=== PATIENT | male | born 2000 | race Caucasian/White ===

== ENCOUNTER → 2022-12-06 13:19 | Outpatient (BNVA) | payer SELFPAY | PROVIDERS: PCP Pediatrics Adolescent Medicine; Visit Provider Internal Medicine | DX: Z02.79 Encounter for issue of other medical certificate (principal) ==

== ENCOUNTER 2023-07-25 10:42 | Outpatient (AMB) | payer BC, SELFPAY ==
--- NOTE | 2023-07-25 11:05 | MHC.PC.OV ---
Vital Signs 07/25/23 11:13 Height 6 ft 4.57 in Weight 185 lb 6 oz BMI 22.2 BP 102/62 Blood Pressure Location Lt brachial Position Sitting Respiration 17 Pulse 94 Pulse Source Pulse Oximeter Pulse Oximetry (%) 98 Oxygen Delivery Method Room Air Intake Visit Reasons: New Patient/ Request PE Intake Note: Patient is a new patient here to establish care for PE. Transferring care from Dr. Ovidio Elkins/Pediatric and Adolescent Medicine. Medical records have been requested today. Needing [employer] PE form done today. Zipper Cutter Required: No Accompanied by: Self / Same As Patient Allergies No Known Allergies [No Known Allergies*] Allergy (Verified 07/25/23 11:35) Medication List - Last Reconciled 07/25/23 by Farooq Munugia PA-C methylphenidate HCl CD 30 mg PO QAM Tobacco use date assessed: 07/25/23 Dental Screening Dental Screen Date: 07/25/23 Did you have a dental visit in the last 12 months?: No Did you have a dental problem in the last 6 months where you did not have access to dental care?: Yes Was dental information given to patient?: Patient has dentist HPI New Patient/ Request PE HPI Details Patient is a 22-year-old male here today for an annual physical. Patient's previous PCP was at a pediatrics office. Patient has a past medical history significant for ADD disorder.. 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 He wishes to recent ask on a professional level and needs a clearance. Vaccine: Up-to-date with tetanus, declines COVID vaccines, up-to-date with flu vaccine. [facility] Social History (Updated 07/25/23 @ 11:40 by Farooq Munguia PA-C) Housing: House Alcohol intake: current Alcohol intake frequency: holidays/special occasions only Patient Tobacco Use Status: Never used Tobacco e-Cigarette/Vaping Use: Never Used service: No Current occupational status: employed Current occupation: [employer] Cognitive needs: No Hearing needs: No Vision needs: No Questionnaire PHQ-9 Over the last 2 weeks, how often have you been bothered by any of the following problems? 1. Little interest or pleasure in doing things: not at all 2. Feeling down, depressed, or hopeless: not at all 3. Trouble falling or staying asleep, or sleeping too much: not at all 4. Feeling tired or having little energy: not at all 5. Poor appetite or overeating: not at all 6. Feeling bad about yourself - or that you are a failure or have let yourself or your family down: not at all 7. Trouble concentrating on things, such as reading the newspaper or watching television: not at all 8. Moving or speaking so slowly that other people could have noticed. Or the opposite - being so fidgety or restless that you have been moving around a lot more than usual: not at all 9. Thoughts that you would be better off or of hurting yourself in some way: not at all Total score: 0 Depression Screening Interpretation: Negative Depression Screening Done: Yes 08703 - PHQ-9 Billing: Yes Source: Developed by Drs. Sourav Jenkins, Jenn Wood, Godfrey Baltazar and colleagues, with an educational zac from [employer]. Thrive Questionnaire Date Thrive assessed: 07/25/23 I am a: Patient What is your living situation today?: I have a steady place to live Within the past 12 months, did the food you bought not last and you didn't have the money to get more?: Never true Within the past 12 months, did you worry whether your food would run out before you got money to buy more?: Never true Do you have trouble paying for medicines?: No Do you have trouble getting transportation to medical appointments?: No Do you have trouble paying your heating and electricity bill?: No Do you have trouble taking care of your child, family member or friend?: No Do you have trouble with day-to-day activities such as bathing, preparing meals, shopping, managing finances, etc.?: No Are you currently unemployed and looking for a job?: No Are you interested in more education?: No Please select the resources that you would like help with: None Currently or been in a relationship where the following occur: no concerns reported THRIVE Score: 0 AUDIT C Alcohol Use Questionnaire (AUDIT-C) 1. How often do you have a drink containing alcohol?: Never 3. How often do you have six or more drinks on one occasion?: Never Total Score: 0 TAMMY-7 AMB Questionnaire TAMMY-7 Date TAMMY - 7 assessed: 07/25/23 Feeling nervous, anxious, or on edge: 0 = Not at all Not being able to stop or control worryin = Not at all Worrying too much about different things: 0 = Not at all Trouble relaxin = Not at all Being so restless that it is hard to sit still: 0 = Not at all Becoming easily annoyed or irritable: 0 = Not at all Feeling afraid as if something awful might happen: 0 = Not at all Total TAMMY-7 score (0-4 normal; 5-9 mild; 10-14 moderate; 15-21 severe): 0 Source: Developed by Drs. Sourav Jenkins, Jenn Wood, Godfrey Baltazar and colleagues, with an educational zac from [employer]. TAMMY-7 Assessment Billing TAMMY-7 Assessment Tool: TAMMY-7 Assessment 35057 Review of Systems Const Denies body aches, Denies chills, Denies excessive sweating, Denies fatigue, Denies fever(s) and Denies headache(s) Eyes Denies blurry vision ENT Denies dysphagia, Denies vertigo, Denies dizziness, Denies headache(s), Denies hearing loss and Denies tinnitus Card Denies chest pain, Denies chest pain with activity, Denies syncope, Denies irregular heart rhythm and Denies dyspnea Resp Denies chest congestion, Denies cough, Denies hemoptysis, Denies dyspnea and Denies wheezing GI Denies abdominal pain, Denies melena, Denies hematochezia, Denies coffee ground emesis, Denies dysphagia, Denies diarrhea, Denies nausea and Denies vomiting Denies difficulty urinating, Denies dysuria, Denies urinary frequency, Denies urinary hesitancy and Denies urinary urgency Musc Denies arthralgias, Denies limited range of motion, Denies muscle cramps and Denies muscle weakness Skin/Breast Denies rash and Denies skin ulcer Neuro Denies Abnormal speech present, Denies confusion, Denies vertigo, Denies dizziness, Denies syncope, Denies headache(s), Denies memory loss and Denies seizure-like activity Psych Denies anxiety, Denies confusion, Denies depression, Denies memory loss, Denies panic attacks and Denies paranoia Endo Denies excessive sweating, Denies fatigue, Denies flushing, Denies polydipsia and Denies polyuria Aller/Immun Denies wheezing Physical exam (Primary Care) Vital Signs: Last Vital Signs Pulse 94 07/25/23 11:13 Resp 17 07/25/23 11:13 BP 102/62 07/25/23 11:13 Pulse Ox 98 07/25/23 11:13 Oxygen Delivery Method Room Air 07/25/23 11:13 BMI result Body Mass Index 22.2 Tobacco/Smoking Status: Tobacco use Status Tobacco use date assessed 07/25/23 07/25/23 11:25 Patient Tobacco Use Status Never used Tobacco 07/25/23 11:40 e-Cigarette/Vaping Use Never Used 07/25/23 11:40 PHQ-9: PHQ-9 Score PHQ-9: Total score 0 07/25/23 11:37 Depression Screening Interpretation: Negative Thrive Assessment: Date of Thrive Assessment Date Thrive assessed 07/25/23 07/25/23 11:25 Currently or been in a relationship where the following occur: no concerns reported Const General: cooperative, comfortable, no acute distress, alert and awake; No confusion Orientation/consciousness: oriented to person, oriented to place, patient oriented x3 and No confusion HENMT Head: Yes normocephalic Ears: external ears normal and TM's normal bilaterally Face and sinus: No sinus tenderness Mouth: Normal oral and palatal mucosa present and tongue normal Teeth and gingiva: dentition normal and gingiva normal Throat: Yes posterior oropharynx normal, Yes tonsils normal and Yes uvula midline Eyes Conjunctivae: conjunctivae normal Sclerae: sclerae normal Pupils: Equal, round and reactive pupils present EOM: EOMs intact bilaterally Direct Ophthalmoscopy: No no photophobia Neck Neck: Yes no lymphadenopathy, No tender and Yes no JVD Thyroid: Thyroid normal Carotids: no bruits Chest Chest palpation & inspection: no tenderness Resp Effort & Inspection: normal respiratory effort, no audible wheezes, not labored and no stridor Auscultation: no crackles, no rales, no rhonchi and no wheezes Cardio Jugular venous distension: no JVD Rate: regular rate, not bradycardic and not tachycardic Rhythm: regular rhythm Bruits: no carotid bruits Peripheral pulses: Peripheral pulses 2+ throughout GI Inspection: Yes normal to inspection, No abdominal wall ecchymosis and No visible herniation Palpation (GI): Soft to palpation, nontender, no guarding, not rigid and No hepatosplenomegaly present Auscultation: normoactive bowel sounds General: Yes no CVA tenderness Back/Spine/Pelvis Back: no CVA tenderness and No back tenderness Cervical Spine: cervical ROM normal Thoracic/Lumbar Spine: thoracic and lumbar spine normal to inspection, straight leg raise negative bilaterally, No thoraco-lumbar ROM limited and No lumbar spinal tenderness Skin Lesions: no lesions Rashes: no rashes Wounds: no wounds Neuro General: oriented to person, oriented to place, patient oriented x3, CN's II-XI intact bilaterally and No confusion Cranial nerves: Yes Equal, round and reactive pupils present and Yes Normal accommodation reflex present Cognition (Neuro): normal cognition Speech: No Abnormal speech present Gait exam (Neuro): Normal gait present Motor exam (neuro): 5/5 motor strength present throughout Extrem Right upper extremity: full ROM; no cyanosis Left upper extremity: full ROM; no cyanosis Right lower extremity: no edema Left lower extremity: no edema Psych Appearance: grossly normal Mental Status: mental status grossly normal Affect: normal affect Attitude: cooperative Thought process: Normal thought process present Assessment and Plan Assessment & Plan (1) Annual physical exam: Code(s): Z00.00 - Encounter for general adult medical examination without abnormal findings (2) ADD (attention deficit disorder): Code(s): F98.8 - Other specified behavioral and emotional disorders with onset usually occurring in childhood and adolescence Qualifiers: Attention deficit-hyperactivity disorder type: predominantly inattentive Hyperactivity presence: present Qualified Code(s): F90.0 - Attention-deficit hyperactivity disorder, predominantly inattentive type Plan: Patient has been diagnosed with ADD since childhood. Continues on low-dose methylphenidate to which his security system installer was managing. Will now need his adult PCP to manage his ADD disorder. (3) Screening for diabetes mellitus (DM): Code(s): Z13.1 - Encounter for screening for diabetes mellitus Orders: Orders Comprehensive [place]. Panel Fast Today Z13.1 - Encounter for screening for diabetes mellitus Coding Level of Care Code New Pt Prev Care 18-39yr([id number] Diagnoses Annual physical exam Z00.00 Attention deficit hyperactivity disorder (ADHD), predominantly inattentive type F90.0 Attention deficit-hyperactivity disorder type: predominantly inattentive Hyperactivity presence: present Screening for diabetes mellitus (DM) Z13.1 CPT Codes Vision Screening - Vision Screenin - Vision Screening ([id number]) Additional Codes TAMMY-7 Assessment Billing - TAMMY-7 Assessment Tool: TAMMY-7 Assessment 85105 ([id number]) Vision Screening Right Eye: 20/20 Left Eye: 20/20 Bilateral: 20/20 Overall Vision Screening Results: Pass 73712 - Vision Screening
[2023-07-25 11:13] VITALS: BP 102/62; PULSE 94; RESP 17; O2SAT 98; BMI 22.2
== END 2023-07-25 11:58 | disposition home or self-care (01) ==
PROVIDERS: PCP Pediatrics Adolescent Medicine; Visit Provider Physician Assistant
DX: Z00.00 Encounter for general adult medical examination without abnormal findings (principal); F90.0 Attention-deficit hyperactivity disorder, predominantly inattentive type; Z13.1 Encounter for screening for diabetes mellitus; Z01.00 Encounter for examination of eyes and vision without abnormal findings
CPT/HCPCS: 99173; 99385

== ENCOUNTER 2023-10-14 09:47 | Outpatient (REF) | payer BC, SELFPAY ==
[2023-10-14 11:49] LABS: Alanine Aminotransferase 11 U/L (0-40); Albumin Level 4.5 g/dL (3.5-5.0); Alkaline Phosphatase 78 U/L (39-117); Anion Gap 15 (12-20); Aspartate Amino Transferase 17 U/L (5-37); Blood Urea Nitrogen 19 mg/dL (9-16); Calcium 9.1 mg/dL (8.4-10.2); Carbon Dioxide 28 mmol/L (22-29); Chloride 106 mmol/L (96-108); Estimated Glomerular Filt Rate > 60; Glucose Fasting 89 mg/dL (60-99); Potassium 3.8 mmol/L (3.3-5.1); Sodium 145 mmol/L (135-145); Total Protein 7.1 g/dL (6.5-8.0)
== END 2023-10-14 09:48 | disposition home or self-care (01) ==
LOC: HO.HMGCLDS 09:47
PROVIDERS: PCP Physician Assistant; Visit Provider Physician Assistant
DX: Z13.1 Encounter for screening for diabetes mellitus (principal)
CPT/HCPCS: 36415; 80053

== ENCOUNTER 2023-10-31 14:29 | Outpatient (AMB) | payer BC, SELFPAY ==
--- NOTE | 2023-10-31 14:31 | A.OFFPC_ITS ---
Vital Signs 10/31/23 14:35 Height 6 ft 4.47 in Weight 180 lb 8 oz BMI 21.7 BP 120/60 Blood Pressure Location Lt brachial Position Sitting Pulse 108 H Pulse Source Pulse Oximeter Pulse Oximetry (%) 98 Oxygen Delivery Method Room Air Intake Visit Reasons: f/u ADD Resource Program Teacher Required: No Accompanied by: Self / Same As Patient Allergies No Known Allergies [No Known Allergies*] Allergy (Verified 10/31/23 14:36) Medication List - Last Reconciled 10/31/23 by Farooq Munguia PA-C methylphenidate HCl CD 30 mg PO DAILY 30 days Tobacco use date assessed: 07/25/23 Dental Screening Dental Screen Date: 07/25/23 HPI f/u ADD HPI Details Patient is a 23-year-old male here today for a follow-up visit. . Patient has a past medical history significant for ADD disorder.. 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 He has been doing well on current dose of methylphenidate though feels his dose has a bit low for him, he would like to try higher dose to help him with his attention focus a bit more. 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 Sourav Jenkins, Jenn Wood, Godfrey Baltazar and colleagues, with an educational zac from [employer]. Review of Systems Const Denies headache(s) Eyes Denies loss of vision ENT Denies vertigo, Denies dizziness, Denies headache(s) and Denies sore throat Card Denies chest pain, Denies leg edema and Denies lightheadedness Resp Denies cough, Denies hemoptysis and Denies wheezing GI Denies abdominal pain, Denies melena, Denies constipation, Denies diarrhea and Denies vomiting Denies dysuria, Denies urinary frequency and Denies urinary urgency Musc Denies arthralgias, Denies joint swelling, Denies numbness and Denies tingling Neuro Denies Abnormal speech present, Denies behavioral changes, Denies vertigo, Denies dizziness, Denies headache(s), Denies loss of vision, Denies memory loss, Denies numbness and Denies tingling Psych Denies anxiety, Denies behavioral changes, Denies depression, Denies memory loss and Denies panic attacks Carroll/Lymph Denies easy bleeding and Denies easy bruising Aller/Immun Denies wheezing Physical exam (Primary Care) Vital Signs: Last Vital Signs Pulse 108 H 10/31/23 14:35 BP 120/60 10/31/23 14:35 Pulse Ox 98 10/31/23 14:35 Oxygen Delivery Method Room Air 10/31/23 14:35 BMI result Body Mass Index 21.7 Tobacco/Smoking Status: Tobacco use Status Tobacco use date assessed 07/25/23 10/31/23 14:32 Patient Tobacco Use Status Never used Tobacco 10/31/23 14:32 e-Cigarette/Vaping Use Never Used 10/31/23 14:32 Thrive Assessment: Date of Thrive Assessment Date Thrive assessed 07/25/23 10/31/23 14:32 Const General: healthy appearing, no acute distress, alert and awake Nutritional Appearance: well nourished Orientation/consciousness: oriented to person, oriented to place and oriented to time HENMT Ears: TM's normal bilaterally General nose exam: Normal nasal mucous membranes and turbinates present Eyes Conjunctivae: conjunctivae normal Sclerae: sclerae normal Pupils: Equal, round and reactive pupils present Neck Neck: Yes no lymphadenopathy and Yes no JVD Thyroid: Thyroid normal Carotids: no bruits Resp Effort & Inspection: normal respiratory effort and not tachypneic Auscultation: no crackles, no rales, no rhonchi and no wheezes Cardio Rate: regular rate Rhythm: regular rhythm Heart sounds: no murmurs and normal S1 and S2 GI Palpation (GI): Soft to palpation, nontender, no hepatomegaly and no splenomegaly Auscultation: normal bowel sounds Skin General skin exam: no rashes or lesions noted and dry skin Neuro General: oriented to person, oriented to place and oriented to time Cranial nerves: Yes Equal, round and reactive pupils present Speech: No Abnormal speech present Gait exam (Neuro): Normal gait present Motor exam (neuro): no tremor noted Extrem Right upper extremity: full ROM Left upper extremity: full ROM Right lower extremity: full ROM; no edema Left lower extremity: full ROM; no edema Psych Mental Status: mental status grossly normal Speech and movement: Normal speech and movement present Affect: normal affect Attitude: cooperative Thought process: Normal thought process present Assessment and Plan Assessment & Plan (1) ADD (attention deficit disorder): Code(s): F98.8 - Other specified behavioral and emotional disorders with onset usually occurring in childhood and adolescence Qualifiers: Hyperactivity presence: present Attention deficit-hyperactivity disorder type: predominantly inattentive Qualified Code(s): F90.0 - Attention- deficit hyperactivity disorder, predominantly inattentive type Plan: Patient has been diagnosed with ADD since childhood. Continues on low-dose methylphenidate to which his rabble furnace tender was managing. He feels his current dose Concerta is fairly effective though would like to try higher dose to see if helps him focus a bit better. Will increase his dose to 54 mg daily. Will follow-up in 3 months for ADD follow-up Medications: New methylphenidate HCl ER Partial Fill upon patient request. 54 mg PO DAILY 30 days 30 tabs 0RF F90.0 - Attention-deficit hyperactivity disorder, predominantly inattentive type Discontinued methylphenidate HCl CD Partial Fill upon patient request. Discontinued Reason: Doctor's Order 30 mg PO DAILY 30 days 30 caps 0RF F90.0 - Attention-deficit hyperactivity disorder, predominantly inattentive type Coding Level of Care Code Est Pt Level 3 (62808) Diagnoses Attention deficit hyperactivity disorder (ADHD), predominantly inattentive type F90.0 Hyperactivity presence: present Attention deficit-hyperactivity disorder type: predominantly inattentive
[2023-10-31 14:35] VITALS: BP 120/60; PULSE 108; O2SAT 98; BMI 21.7
== END 2023-10-31 14:45 | disposition home or self-care (01) ==
LOC: HO.HMGH 14:29
PROVIDERS: PCP Physician Assistant; Visit Provider Physician Assistant
DX: F90.0 Attention-deficit hyperactivity disorder, predominantly inattentive type (principal)
CPT/HCPCS: 99213

== ENCOUNTER 2024-01-31 08:11 | Outpatient (AMB) | payer BC, SELFPAY ==
[2024-01-31 08:26] VITALS: BP 110/68; PULSE 72; O2SAT 98; BMI 21.2
--- NOTE | 2024-01-31 08:26 | MHC.PC.OV ---
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 Required: No Accompanied by: Self / Same As Patient Allergies No Known Allergies [No Known Allergies*] Allergy (Verified 01/31/24 08:40) Medication List - Last Reconciled 01/31/24 by Farooq Munguia PA-C methylphenidate HCl ER 54 mg PO DAILY 30 days Tobacco use date assessed: 01/31/24 Dental Screening Dental Screen Date: 01/31/24 Did you have a dental visit in the last 12 months?: Yes Did you have a dental problem in the last 6 months where you did not have access to dental care?: No Was dental information given to patient?: Patient has dentist HPI 3mth f/u HPI Details Patient is a 23-year-old male here today for a follow-up visit. . Patient has a past medical history significant for ADD disorder.. 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 He has been doing well on current dose of methylphenidate though feels the 54 mg dose has been working well for him. 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 1. Little interest or pleasure in doing things: not at all 2. Feeling down, depressed, or hopeless: not at all 3. Trouble falling or staying asleep, or sleeping too much: not at all 4. Feeling tired or having little energy: not at all 5. Poor appetite or overeating: not at all 6. Feeling bad about yourself - or that you are a failure or have let yourself or your family down: not at all 7. Trouble concentrating on things, such as reading the newspaper or watching television: not at all 8. Moving or speaking so slowly that other people could have noticed. Or the opposite - being so fidgety or restless that you have been moving around a lot more than usual: not at all 9. Thoughts that you would be better off or of hurting yourself in some way: not at all Total score: 0 Depression Screening Interpretation: Negative Depression Screening Done: Yes 12768 - PHQ-9 Billing: Yes Source: Developed by Drs. Sourav Jenkins, Jenn Wood, Godfrey Baltazar and colleagues, with an educational zac from [employer]. Thrive Questionnaire Date Thrive assessed: 01/31/24 I am a: Patient What is your living situation today?: I have a steady place to live Within the past 12 months, did the food you bought not last and you didn't have the money to get more?: Never true Within the past 12 months, did you worry whether your food would run out before you got money to buy more?: Never true Do you have trouble paying for medicines?: No Do you have trouble getting transportation to medical appointments?: No Do you have trouble paying your heating and electricity bill?: No Do you have trouble taking care of your child, family member or friend?: No Do you have trouble with day-to-day activities such as bathing, preparing meals, shopping, managing finances, etc.?: No Are you currently unemployed and looking for a job?: No Are you interested in more education?: No Please select the resources that you would like help with: None Currently or been in a relationship where the following occur: No concerns reported THRIVE Score: 0 AUDIT C Alcohol Use Questionnaire (AUDIT-C) 1. How often do you have a drink containing alcohol?: Never 3. How often do you have six or more drinks on one occasion?: Never Total Score: 0 TAMMY-7 AMB Questionnaire TAMMY-7 Date TAMMY - 7 assessed: 01/31/24 Feeling nervous, anxious, or on edge: 0 = Not at all Not being able to stop or control worryin = Not at all Worrying too much about different things: 0 = Not at all Trouble relaxin = Not at all Being so restless that it is hard to sit still: 0 = Not at all Becoming easily annoyed or irritable: 0 = Not at all Feeling afraid as if something awful might happen: 0 = Not at all Total TAMMY-7 score (0-4 normal; 5-9 mild; 10-14 moderate; 15-21 severe): 0 Source: Developed by Drs. Sourav Jenkins, Jenn Wood, Godfrey Baltazar and colleagues, with an educational zac from [employer]. TAMMY-7 Assessment Billing TAMMY-7 Assessment Tool: TAMMY-7 Assessment 57088 Review of Systems Const Denies headache(s) Eyes Denies loss of vision ENT Denies vertigo, Denies dizziness, Denies headache(s) and Denies sore throat Card Denies chest pain, Denies leg edema and Denies lightheadedness Resp Denies cough, Denies hemoptysis and Denies wheezing GI Denies abdominal pain, Denies melena, Denies constipation, Denies diarrhea and Denies vomiting Denies dysuria, Denies urinary frequency and Denies urinary urgency Musc Denies arthralgias, Denies joint swelling, Denies numbness and Denies tingling Neuro Denies Abnormal speech present, Denies behavioral changes, Denies vertigo, Denies dizziness, Denies headache(s), Denies loss of vision, Denies memory loss, Denies numbness and Denies tingling Psych Denies anxiety, Denies behavioral changes, Denies depression, Denies memory loss and Denies panic attacks Carroll/Lymph Denies easy bleeding and Denies easy bruising Aller/Immun Denies wheezing Physical exam (Primary Care) Vital Signs: Last Vital Signs Pulse 72 01/31/24 08:26 BP 110/68 01/31/24 08:26 Pulse Ox 98 01/31/24 08:26 Oxygen Delivery Method Room Air 01/31/24 08:26 BMI result Body Mass Index 21.2 Tobacco/Smoking Status: Tobacco use Status Tobacco use date assessed 01/31/24 01/31/24 08:31 Patient Tobacco Use Status Never used Tobacco 01/31/24 08:31 e-Cigarette/Vaping Use Never Used 01/31/24 08:31 PHQ-9: PHQ-9 Score PHQ-9: Total score 0 10/16/24 08:33 Depression Screening Interpretation: Negative Thrive Assessment: Date of Thrive Assessment Date Thrive assessed 01/31/24 01/31/24 08:31 Currently or been in a relationship where the following occur: No concerns reported Const General: healthy appearing, no acute distress, alert and awake Nutritional Appearance: well nourished Orientation/consciousness: oriented to person, oriented to place and oriented to time HENMT Ears: TM's normal bilaterally General nose exam: Normal nasal mucous membranes and turbinates present Eyes Conjunctivae: conjunctivae normal Sclerae: sclerae normal Pupils: Equal, round and reactive pupils present Neck Neck: Yes no lymphadenopathy and Yes no JVD Thyroid: Thyroid normal Carotids: no bruits Resp Effort & Inspection: normal respiratory effort and not tachypneic Auscultation: no crackles, no rales, no rhonchi and no wheezes Cardio Rate: regular rate Rhythm: regular rhythm Heart sounds: no murmurs and normal S1 and S2 GI Palpation (GI): Soft to palpation, nontender, no hepatomegaly and no splenomegaly Auscultation: normal bowel sounds Skin General skin exam: no rashes or lesions noted and dry skin Neuro General: oriented to person, oriented to place and oriented to time Cranial nerves: Yes Equal, round and reactive pupils present Speech: No Abnormal speech present Gait exam (Neuro): Normal gait present Motor exam (neuro): no tremor noted Extrem Right upper extremity: full ROM Left upper extremity: full ROM Right lower extremity: full ROM; no edema Left lower extremity: full ROM; no edema Psych Mental Status: mental status grossly normal Speech and movement: Normal speech and movement present Affect: normal affect Attitude: cooperative Thought process: Normal thought process present Office Procedures Flu Questionnaire Does the patient have a severe egg allergy?: No Immunizations Fluarix Triv [id number] (PF) 45 mcg (15 mcg x 3)/0.5 mL IM syringe Performing Provider: Farooq Munguia PA-C [facility] [place] [facility] Documented (not given) by: DARIUS Blackman on 01/31/24 08:33 Reason Not Given: Patient Refused Coding Level of Care Code Est Pt Level 3 (87705) Diagnoses Attention deficit hyperactivity disorder (ADHD), predominantly inattentive type F90.0 Hyperactivity presence: present Attention deficit-hyperactivity disorder type: predominantly inattentive Additional Codes TAMMY-7 Assessment Billing - TAMMY-7 Assessment Tool: TAMMY-7 Assessment 58081 ([id number]) Assessment & Plan Assessment & Plan (1) ADD (attention deficit disorder): Code(s): F98.8 - Other specified behavioral and emotional disorders with onset usually occurring in childhood and adolescence Category: Medical Qualifiers: Hyperactivity presence: present Attention deficit-hyperactivity disorder type: predominantly inattentive Qualified Code(s): F90.0 - Attention-deficit hyperactivity disorder, predominantly inattentive type Plan: As per HPI patient continues on Concerta 54 mg with good effect on his attention focus. 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 He denies any side effects from the stimulant medication. Orders: Orders Influenza [id number] Immunization Today Z23 - Encounter for immunization Medications: Refilled methylphenidate HCl ER Partial Fill upon patient request. 54 mg PO DAILY 30 days 30 tabs 0RF F90.0 - Attention-deficit hyperactivity disorder, predominantly inattentive type
== END 2024-01-31 08:48 | disposition home or self-care (01) ==
PROVIDERS: PCP Physician Assistant; Visit Provider Physician Assistant
DX: F90.0 Attention-deficit hyperactivity disorder, predominantly inattentive type (principal); Z23 Encounter for immunization

== ENCOUNTER → 2024-01-31 08:11 | Outpatient (BNVA) | payer BC, SELFPAY | PROVIDERS: PCP Physician Assistant; Visit Provider Physician Assistant | DX: F90.0 Attention-deficit hyperactivity disorder, predominantly inattentive type (principal); Z79.899 Other long term (current) drug therapy; Z28.21 Immunization not carried out because of patient refusal | CPT/HCPCS: 90471; 96127 ==

== ENCOUNTER 2024-05-08 08:07 | Outpatient (AMB) | payer BC, SELFPAY ==
--- NOTE | 2024-05-08 08:11 | A.OFFPC_ITS ---
Vital Signs 05/08/24 08:16 Height 6 ft 4.57 in Weight 181 lb 4 oz BMI 21.7 BP 110/70 Blood Pressure Location Lt brachial Position Sitting Pulse 80 Pulse Source Pulse Oximeter Temp 97.1 F Temp Source Skin Pulse Oximetry (%) 98 Oxygen Delivery Method Room Air Intake Visit Reasons: f/u ADHD Intake Note: Patient is here to follow up on ADHD. Pt decline flu shot today. Instrumental Music Teacher Required: No Underwriting Technician: Not Required per policy Accompanied by: Self / Same As Patient Allergies No Known Allergies [No Known Allergies*] Allergy (Verified 05/08/24 08:22) Medication List - Last Reconciled 05/08/24 by Farooq Munguia PA-C methylphenidate HCl ER 54 mg PO DAILY 30 days Tobacco use date assessed: 05/08/24 Dental Screening Dental Screen Date: 05/08/24 Did you have a dental visit in the last 12 months?: Yes Did you have a dental problem in the last 6 months where you did not have access to dental care?: No Was dental information given to patient?: Patient has dentist HPI f/u ADHD HPI Details Patient is a 23-year-old male here today for a follow-up visit. . Patient has a past medical history significant for ADD disorder.. 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 He has been doing well on current dose of methylphenidate though feels the 54 mg dose has been working well for him. Does inquire about a higher dose of methylphenidate. 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 1. Little interest or pleasure in doing things: not at all 2. Feeling down, depressed, or hopeless: not at all 3. Trouble falling or staying asleep, or sleeping too much: not at all 4. Feeling tired or having little energy: not at all 5. Poor appetite or overeating: not at all 6. Feeling bad about yourself - or that you are a failure or have let yourself or your family down: not at all 7. Trouble concentrating on things, such as reading the newspaper or watching television: not at all 8. Moving or speaking so slowly that other people could have noticed. Or the opposite - being so fidgety or restless that you have been moving around a lot more than usual: not at all 9. Thoughts that you would be better off or of hurting yourself in some way: not at all Total score: 0 Depression Screening Interpretation: Negative Depression Screening Done: Yes Source: Developed by Drs. Sourav Jenkins, Jenn Wood, Godfrey Baltazar and colleagues, with an educational zac from [employer]. Thrive Questionnaire Date Thrive assessed: 05/08/24 I am a: Patient What is your living situation today?: I have a steady place to live Within the past 12 months, did the food you bought not last and you didn't have the money to get more?: Never true Within the past 12 months, did you worry whether your food would run out before you got money to buy more?: Never true Do you have trouble paying for medicines?: No Do you have trouble getting transportation to medical appointments?: No Do you have trouble paying your heating and electricity bill?: No Do you have trouble taking care of your child, family member or friend?: No Do you have trouble with day-to-day activities such as bathing, preparing meals, shopping, managing finances, etc.?: No Are you currently unemployed and looking for a job?: No Are you interested in more education?: No Please select the resources that you would like help with: None Currently or been in a relationship where the following occur: No concerns reported THRIVE Score: 0 AUDIT C Alcohol Use Questionnaire (AUDIT-C) 1. How often do you have a drink containing alcohol?: Monthly or less 2. How many drinks containing alcohol do you have on a typical day when you are drinking?: 1 or 2 3. How often do you have six or more drinks on one occasion?: Less than monthly Total Score: 2 TAMMY-7 AMB Questionnaire TAMMY-7 Date TAMMY - 7 assessed: 05/08/24 Feeling nervous, anxious, or on edge: 0 = Not at all Not being able to stop or control worryin = Not at all Worrying too much about different things: 0 = Not at all Trouble relaxin = Not at all Being so restless that it is hard to sit still: 0 = Not at all Becoming easily annoyed or irritable: 0 = Not at all Feeling afraid as if something awful might happen: 0 = Not at all Total TAMMY-7 score (0-4 normal; 5-9 mild; 10-14 moderate; 15-21 severe): 0 Source: Developed by Drs. Sourav Jenkins, Jenn Wood, Godfrey Baltazar and colleagues, with an educational zac from [employer]. Review of Systems Const Denies headache(s) Eyes Denies loss of vision ENT Denies vertigo, Denies dizziness, Denies headache(s) and Denies sore throat Card Denies chest pain, Denies leg edema and Denies lightheadedness Resp Denies cough, Denies hemoptysis and Denies wheezing GI Denies abdominal pain, Denies melena, Denies constipation, Denies diarrhea and Denies vomiting Denies dysuria, Denies urinary frequency and Denies urinary urgency Musc Denies arthralgias, Denies joint swelling, Denies numbness and Denies tingling Neuro Denies Abnormal speech present, Denies behavioral changes, Denies vertigo, Denies dizziness, Denies headache(s), Denies loss of vision, Denies memory loss, Denies numbness and Denies tingling Psych Denies anxiety, Denies behavioral changes, Denies depression, Denies memory loss and Denies panic attacks Carroll/Lymph Denies easy bleeding and Denies easy bruising Aller/Immun Denies wheezing Physical exam (Primary Care) Vital Signs: Last Vital Signs Temp 97.1 F 05/08/24 08:16 Pulse 80 05/08/24 08:16 BP 110/70 05/08/24 08:16 Pulse Ox 98 05/08/24 08:16 Oxygen Delivery Method Room Air 05/08/24 08:16 BMI result Body Mass Index 21.7 Tobacco/Smoking Status: Tobacco use Status Tobacco use date assessed 05/08/24 05/08/24 08:15 Patient Tobacco Use Status Never used Tobacco 05/08/24 08:15 e-Cigarette/Vaping Use Never Used 05/08/24 08:15 PHQ-9: PHQ-9 Score PHQ-9: Total score 0 05/08/24 08:21 Depression Screening Interpretation: Negative Thrive Assessment: Date of Thrive Assessment Date Thrive assessed 05/08/24 05/08/24 08:15 Currently or been in a relationship where the following occur: No concerns reported Const General: healthy appearing, no acute distress, alert and awake Nutritional Appearance: well nourished Orientation/consciousness: oriented to person, oriented to place and oriented to time HENMT Ears: TM's normal bilaterally General nose exam: Normal nasal mucous membranes and turbinates present Eyes Conjunctivae: conjunctivae normal Sclerae: sclerae normal Pupils: Equal, round and reactive pupils present Neck Neck: Yes no lymphadenopathy and Yes no JVD Thyroid: Thyroid normal Carotids: no bruits Resp Effort & Inspection: normal respiratory effort and not tachypneic Auscultation: no crackles, no rales, no rhonchi and no wheezes Cardio Rate: regular rate Rhythm: regular rhythm Heart sounds: no murmurs and normal S1 and S2 GI Palpation (GI): Soft to palpation, nontender, no hepatomegaly and no splenomegaly Auscultation: normal bowel sounds Skin General skin exam: no rashes or lesions noted and dry skin Neuro General: oriented to person, oriented to place and oriented to time Cranial nerves: Yes Equal, round and reactive pupils present Speech: No Abnormal speech present Gait exam (Neuro): Normal gait present Motor exam (neuro): no tremor noted Extrem Right upper extremity: full ROM Left upper extremity: full ROM Right lower extremity: full ROM; no edema Left lower extremity: full ROM; no edema Psych Mental Status: mental status grossly normal Speech and movement: Normal speech and movement present Affect: normal affect Attitude: cooperative Thought process: Normal thought process present Immunizations Boostrix Tdap 2.5 Lf unit-8 mcg-5 Lf/0.5 mL intramuscular syringe Performing Provider: Farooq Munguia PA-C Performing [facility]: [facility] Administered by: DARIUS Blackman on 05/08/24 08:38 Dose Route Admin Location Dispensed Lot Number Expiration Date [facility] [employer] Dean 0.5 mL IM Right Deltoid 0.5 mL [id number] 01/03/27 [id number] Omnireliant VIS Given Date VIS Provided VIS Publication Date 05/08/24 Single Vaccine 20 Eligibility Eligibility Date Funding Source Not [facility] Eligible 05/08/24 Private Coding Level of Care Code Est Pt Level 3 (31115) Diagnoses Attention deficit hyperactivity disorder (ADHD), predominantly inattentive type F90.0 Hyperactivity presence: present Attention deficit-hyperactivity disorder type: predominantly inattentive Assessment & Plan Assessment & Plan (1) ADD (attention deficit disorder): Code(s): F98.8 - Other specified behavioral and emotional disorders with onset usually occurring in childhood and adolescence Category: Medical Qualifiers: Hyperactivity presence: present Attention deficit-hyperactivity disorder type: predominantly inattentive Qualified Code(s): F90.0 - Attention-deficit hyperactivity disorder, predominantly inattentive type Plan: Patient doing quite well on current dose of methylphenidate. He reports he is able to stay focused and attentive on his job related tasks. He denies any side effects from stimulant ADHD medication. Will continue current dose at this time. Orders: Orders Comprehensive [place]. Panel Fast Today Z13.1 - Encounter for screening for diabetes mellitus Complete Blood Count no Diff Today Z13.1 - Encounter for screening for diabetes mellitus TDaP Immunization Today F90.0 - Attention-deficit hyperactivity disorder, predominantly inattentive type, Z23 - Encounter for immunization Medications: New Boostrix Tdap (diphth,pertus(acell),tetanus) 0.5 mL IM ONCE 0.5 mL 0RF NS F90.0 - Attention-deficit hyperactivity disorder, predominantly inattentive type, Z23 - Encounter for immunization Refilled methylphenidate HCl ER Partial Fill upon patient request. 54 mg PO DAILY 30 days 30 tabs 0RF F90.0 - Attention-deficit hyperactivity disorder, predominantly inattentive type
--- OUTSIDE RECORDS SUMMARY | 2024-05-08 08:11 | XMS_ITS | Clinical Summary ---
Author Organization [facility] Address [address] [place] [address] Phone Care Team Providers Care Postulant Name Role Phone Unavailable Primary Care Provider Unavailabl e Allergies Active Allergy Reactions Criticality Noted Date Comments Lisdexamfetamine Dimesylate Vyvanse Medications methylphenidate CD 30 MG CR capsuleIndications :Attention deficit disorder with hyperactivity Take 1 capsule (30 mg total) by mouth once daily. 30 capsule 4 Active Active Problems Problem Noted Date Diagnosed Date Counseling for transition fr pediatric to adult care provider 07/20/2022 Attention deficit disorder with hyperactivity Overview (02/01/2018): attention-deficit hyperactivity disorder (ADHD), predominantly hyperactive type (314.01) Onset: 10/01/2015 Added by: Sarah Roque Assessment & Plan (05/17/2023 10:29 AM EST): 30 mg of Methylphenidate CR doing well Adult provider by August 08-- sooner as needed Dr. Elkins will do refills 08/08 Doing well overall. Call with any concerns Assessment & Plan (07/20/2022 9:05 AM EDT): 30 mg of Methylphenidate CR doing well Adult provider by Fall 2022-- sooner as needed Dr. Elkins will do refills til 02/06 Doing well overall. Call with any concerns Assessment & Plan (02/09/2022 9:33 AM EDT): 30 mg of Methylphenidate CR doing well Recheck in a August 07 for annual PE, sooner as needed Doing well overall. Call with any concerns Assessment & Plan (07/16/2021 8:47 AM EDT): Increased dose from 20 to 30 mg of Methylphenidate CR Recheck in a few months, sooner as needed Doing well overall. Assessment & Plan (04/05/2021 9:00 AM EST): Continue present medication as discussed School services such as 504 plan as needed Discussed medication effects and side effects Call for refill when down to last 5-7 tablets/capsules Healthy diet, regular exercise and at least 8 hours sleep nightly encouraged Recheck [facility] 05/2021 Assessment & Plan (07/13/2020 10:41 AM EDT): Continue present medication as discussed--- Metadate CD 20 mg daily in AM and try an additional 10 mg of the short acting methylphenidate as well when need in the afternoon- discussed. Will last around 4 hours or so. School services such as 504 plan as needed Discussed medication effects and side effects Call for refill when down to last 5-7 tablets/capsules Healthy diet, regular exercise and at least 8 hours sleep nightly encouraged Assessment & Plan (02/26/2020 11:12 AM EST): Continue present medication as discussed--stable and doing very well. School services such as 504 plan as needed Discussed medication effects and side effects Call for refill when down to last 5-7 tablets/capsules Healthy diet, regular exercise and at least 8 hours sleep nightly encouraged Recheck at Physical exam visit 05/28/2020 Assessment & Plan (2019 9:09 AM EDT): Patient Instructions Continue present medication as discussed School services such as 504 as needed Discussed medication effects and side effects Call for refill when down to last 5-7 tablets/capsules Healthy diet, regular exercise and at least 8 hours sleep nightly encouraged 3 months rx sent in today. Discussed trial of a higher dose, vs afternoon short acting ritalin vs trying Concerta and patient declined even though he feels dose is a bit inadequate in the afternoon. Will call if he changes his mind. Assessment & Plan (08/19/2019 2:24 PM EDT): Discussed. Increase dose of Metadate CD 10 mg to 20 mg in the AM. They just refilled the 10 mg so we will use 2 of these prior to sending in another refill. Mom to call in 1 week w update. Assessment & Plan (05/21/2018 5:51 PM EST): Metadate CD, continue 10 mg Teacher Vandangelica x 5 ----if suggestive of need for a higher dose will call parents to discuss. 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 Consider adding OTC allergy medications--- Claritin or Peyton once daily this Spring in the AM Cool compresses 1-2x daily and wash face 1-2x daily to rinse pollens off face. Acute right eye pain 05/20/2020 021 Assessment & Plan (05/20/2020 1:54 PM EST): Likely was a foreign body from work in his eye- not apparent on exam or during Not seen in office today. Tobradex eye drops x 5 days every 4 hours while awake. Call tomorrow w update. If not improving a lot advise full eye evaluation on Monday/sooner if needed. Localized skin mass, lump, or swelling 04/27/2020 07/13/2020 Assessment & Plan (04/27/2020 3:44 PM EST): Most c/w lipoma or less likely a small LN. Benign in nature and regressing a bit. Recheck at 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 Assessment & Plan (02/01/2018 4:23 PM EDT): Mild left thoracic hump, improved last 6 mo, no xrays needed Unequal leg length (acquired) 05/15/2017 02/01/2018 Overview (02/01/2018): Leg length discrepancy/Scoliosis (736.81) Onset: 05/15/2017 Added by: Ovidio Elkins Immunizations Name Administration Dates Next Due DTaP 10/09/2006, 4,04/07/2003,02/07,2002 DTaP 5 10/09/2006, 4,04/07/2003,02/07,2002 HPV Vaccine 9 Valent 05/21/2018,05/15/2017 Hep A, ped/adol 02/04/2013,01/02/2012,02/09/2011 Hep B, ped/adol 04/07/2003,2002,2002 Hib (PRP-T) 01/12/2004, 3,02/07/2003,12/09 IPV 10/09/2006, 4,02/07/2003,12/09 Influenza, injectable, quadr ivalent, preservative free 05/17/2023,02/09/2022,04/01/2021,02/25,05/27/2019,02/01/2018,01/12/2017 ,01/07/2016 Influenza, injectable, trivalent 02/09/2011 Influenza, intranasal, quadrivalent 04/2014,02/18/2014,02/04/2013,03/29 MMR 10/09/2006,10/13/2003 Meningococcal B Trumenba 07/15/2021,07/13/2020 Meningococcal Conj (Menactra) MCV4P 05/27/2019,1 04/20/2013 Pneumococcal Conjugate 04/12/2004,2002,02/07/2003,12/09 Tdap 02/18/2014 Varicella 10/09/2006,10/13/2003 Family History Medical History Relation Name Comments Food allergies Father's Brother Learning disabilities Maternal Grandfather Hypertension Maternal Grandmother ADD / ADHD Mother Food allergies Mother Breast cancer Mother's Sister Food allergies Sister Relation Name Status Comments Father's Brother Maternal Grandfather Maternal Grandmother Mother Mother's Sister Sister Social History Tobacco Use Types Packs/Day Years Used Date Smoking Tobacco: Never Smokeless Tobacco: Never Alcohol Use Standard Drinks/Week Comments Never 0 (1 standard drink = 0.6 oz pur e alcohol) rare w family gatherings Hunger/Food Answer Date Recorded In the last 12 months, did y ou or your family ever eat less than you felt you should because there wasn't enough money for food? No 07/20/2022 Stable Housing Answer Date Recorded Are you worried that in the next 2 months you may not have stable housing? No 07/20/2022 Transportation Concerns Answer Date Rec orded In the last 12 months, have you or your family ever had to go without healthcare because you didn't have a way to get there? No 07/20/2022 Hazards in Home Answer Date Recorded Think about the place you li ve. Do you have problems with any of the following? Pests (mice or roaches), mold, no/not working smoke detectors, water leaks, no window guards. No 2022 Financing Utilities Answer Date Recorde d In the last 12 months, has t he electric, gas, oil, or water company threatened to shut off your services in your home? No 07/20/2022 Safety at Home Answer Date Recorded Are you or your family worried about feeling saf e in your home? No 07/20/2022 Outside Support Answer Date Recorded Do you feel that you need mo re support from other people or programs to help you care for yourself or your family? No 07/20/2022 Understanding Health Concerns Answer Da te Recorded Do you need help understandi ng your or your child's healthcare needs (diagnosis, medications, plan, etc.)? No 07/20/2022 Financing Health Concerns Answer Date R ecorded In the last 12 months, was t here a time when your child needed to see a doctor or get medications or supplies but could not because of cost? No 07/20/2022 Missing School or Work Answer Date Blaze rded Did you or your child miss s chool or work because of a health problem that could have been avoided? No 07/20/2022 Sex and Gender Information Value Date Recorded Sex Assigned at Not on file Legal Sex Male 6:23 PM EDT Gender Identity Male 02/07/2023 1:45 PM EDT Sexual Orientation Straight 05/27/2019 4: 09 PM EST Last Filed Vital Signs Vital Sign Reading Time Taken Comments Blood Pressure 120/68 05/17/2023 9:58 AM EST Pulse 70 05/17/2023 9:58 AM EST Temperature 37.1 ??C (98.8 ??F) 05/17/2023 9:58 AM ES T Respiratory Rate 20 05/17/2023 9:58 AM EST Oxygen Saturation 98% 05/17/2023 9:58 AM EST Inhaled Oxygen Concentration - - Weight 84 kg (185 lb 2 oz) 05/17/2023 9:58 AM ES T Height 195.7 cm (6' 5.05 ) 05/17/2023 9:58 AM ES T Body Mass Index 21.93 05/17/2023 9:58 AM EST Plan of Treatment Health Maintenance Due Date Last Done Comments Influenza Vaccines (#1) 2023 05/17/19, 02/09/2022, 04/01/2021, Additional history exists COVID-19 Vaccine ( - 2023-2 5 season) 2023 DTaP,Tdap,and Td Vaccines (7 - Td or Tdap) 02/19/2024 02/18/2014, 10/09/2006, 10/09/2006, Additional history exists Hepatitis B Vaccines Completed 04/07/2003, 2002, 2002 HIB Vaccines Completed 01/12/2004, 03/18, 02/07/2003, Additional history exists Pneumococcal Vaccine Completed 04/12/2004, 04/07/2003, 02/07/2003, Additional history exists IPV Vaccines Completed 10/09/2006, 09/16, 02/07/2003, Additional history exists MMR Vaccines Completed 10/09/2006, 10/13/2003 Varicella Vaccines Completed 10/09/2006, 10/13/2003 Hepatitis A Vaccines Completed 02/04/2013, 01/02/2012, 02/09/2011 HPV Vaccines Completed 05/21/2018, 05/15/2017 Meningococcal Vaccine Completed 05/27/2019, 014 Men B Vaccine Completed 07/15/2021, 07/13/2020 [facility]
--- OUTSIDE RECORDS SUMMARY | 2024-05-08 08:11 | XMS_ITS | Encounter Summary ---
Author Organization [facility] Address [address] [place] [address] Phone Care Team Providers Care Medical Receptionist Medical Assistant Name Role Phone Ovidio Elkins MD Primary Care Provider [phone] Encounter Details Date Type Department Care Team (Late st Contact Info) Description 02/04/2013 Conversion Encounter [facility] - [address] [place] [address] Social History Tobacco Use Types Packs/Day Years Used Date Smoking Tobacco: Never Assessed Sex and Gender Information Value Date Recorded Sex Assigned at Not on file Legal Sex Male 6:23 PM EDT Gender Identity Male 02/07/2023 1:45 PM EDT Sexual Orientation Straight 05/27/2019 4: 09 PM EST documented as of this encounter Plan of Treatment Not on file documented as of this encounter Visit Diagnoses Not on filedocumented in this encounter Care Teams Medical Receptionist Medical Assistant Relationship Specialty Start Date End Date Ovidio Elkins MD [address] [place] [address] [place] [id number] PCP - General 08/23/17 06/14/23 documented as of this encounter
[2024-05-08 08:16] VITALS: BP 110/70; PULSE 80; TEMP 36.2; O2SAT 98; BMI 21.7
== END 2024-05-08 08:44 | disposition home or self-care (01) ==
PROVIDERS: PCP Physician Assistant; Visit Provider Physician Assistant
DX: Z23 Encounter for immunization (principal); F90.0 Attention-deficit hyperactivity disorder, predominantly inattentive type

== ENCOUNTER → 2024-05-08 08:07 | Outpatient (BNVA) | payer BC, SELFPAY | PROVIDERS: PCP Physician Assistant; Visit Provider Physician Assistant | DX: F90.0 Attention-deficit hyperactivity disorder, predominantly inattentive type (principal); Z79.899 Other long term (current) drug therapy; Z23 Encounter for immunization | CPT/HCPCS: 90471; 90715; 96127 ==

== ENCOUNTER 2024-08-07 08:05 | Outpatient (AMB) | payer BC, SELFPAY ==
--- OUTSIDE RECORDS SUMMARY | 2024-08-07 08:15 | XMS_ITS | Clinical Summary ---
Author Organization [facility] Address [address] [place] [address] Phone Care Team Providers Care Executive Community Planning Name Role Phone Unavailable Primary Care Provider [...] by August 08-- sooner as needed Dr. Eklins will do refills 08/08 Doing well overall. [...] least 8 hours sleep nightly encouraged Recheck [facility] 05/2021 Assessment & Plan (07/13/2020 10:41 AM [...] nature and regressing a bit. Recheck at [facility] 05/28/2020 Follow up anytime if doubles or [...] Onset: 05/15/2017 Added by: Ovidio Elkins Immunizations Immunization Administration Dates Next Due DTaP 10/09/2006, 4,04/07/2003,02/07,2002 [...] Men B Vaccine Completed 07/15/2021, 07/13/2020 [facility]
--- OUTSIDE RECORDS SUMMARY | 2024-08-07 08:16 | XMS_ITS | Encounter Summary ---
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 Closed stable burst fracture of first lumbar vertebra, initial encounter ([facility]) Closed nondisplaced fracture of left patella, unspecified fracture morphology, initial encounter L1 vertebral fracture ([facility]) Patella fracture Closed fracture of patella documented in this encounter Administered Medications Inactive Administered Medications - up to 3 most recent administrations Medication Order MAR Action Action Date Dose Rate Site acetaminophen (TYLENOL) tablet 650 mg 650 mg, oral, Every 6 hours PRN, pain, Starting on Digna 08/01/24 at 0454, Until Digna 08/01/24 at 1320 Given 08/01/2024 5:05 AM EDT 650 mg acetaminophen (TYLENOL) tablet 650 mg 650 mg, oral, Every 6 hours scheduled, First dose (after last modification) on Digna 08/01/24 at 1325, Until Discontinued Given 08/01/2024 6:00 PM EDT 650 mg Given 08/01/2024 3:51 PM EDT 650 mg gabapentin (NEURONTIN) capsule 300 mg 300 mg, oral, Every 8 hours scheduled, First dose on Mon07/31/24 at 2335, Until Discontinued Given 08/01/2024 9:11 PM EDT 300 mg Given 08/01/2024 3:51 PM EDT 300 mg Given 08/01/2024 5:02 AM EDT 300 mg ketorolac (TORADOL) injection 15 mg 15 mg, intravenous, Once, On Mon07/31/24 at 2335, 1 dose Given 08/01/2024 1:12 AM EDT 15 mg lidocaine (LIDODERM) 5% patch 1 patch 1 patch, topical, Administer over 12 Hours, Daily, First dose on Mon08/02/24 at 0900, Until Discontinued, Apply to back at area of tenderness. morphine injection 4 mg 4 mg, intravenous, Once, On Mon07/31/24 at 2200, 1 dose, Assess pain, sedation, and respiratory rate prior to each opioid administration. Given 07/31/2024 10:16 PM EDT 4 mg morphine injection 4 mg 4 mg, intravenous, Every 2 hour PRN, breakthrough pain, Starting on Mon07/31/24 at 2208, 3 doses, Until Mon08/01/24 at 1319, Assess pain, sedation, and respiratory rate prior to each opioid administration. Given 08/01/2024 8:28 AM EDT 4 mg Given 08/01/2024 2:54 AM EDT 4 mg oxyCODONE IR (ROXICODONE) tablet 10 mg 10 mg, oral, Every 4 hours PRN, Severe pain or 7-10 (on the numeric pain scale), Starting on Mon08/01/24 at 1320, Until Mon08/01/24 at 2351, Assess pain, sedation, and respiratory rate prior to each opioid administration. oxyCODONE IR (ROXICODONE) tablet 5 mg 5 mg, oral, Every 4 hours PRN, Moderate pain or 4-6 (on the numeric pain scale), Starting on Mon08/01/24 at 1320, Until Mon08/01/24 at 2351, Assess pain, sedation, and respiratory rate prior to each opioid administration. documented in this encounter Active and Recently Administered Medications Times are shown in EDT. Scheduled Medication Order 07/30/2024 07/31/2024 08/01/2024 acetaminophen (TYLENOL) tablet 650 mg 650 mg, oral, Every 6 hours scheduled, First dose (after last modification) on Mon08/01/24 at 1325, Until Discontinued 1551 (Given - Provid er: Charity Rojas RN)1800 (Given - Provider: Charity Rojas RN - Comment: dose given at 2110) gabapentin (NEURONTIN) capsule 300 mg 300 mg, oral, Every 8 hours scheduled, First dose on Mon07/31/24 at 2335, Until Discontinued 0113 (Given - Provid er: Denise Leyva RN)0502 (Given - Provider: Shruthi Felix, MELITA)155 (Given - Provider: Charity Rojas, MELITA)211 (Given - Provider: Charity Rojas RN) ketorolac (TORADOL) injection 15 mg (COMPLETED) 15 mg, intravenous, Once, On Mon07/31/24 at 2335, 1 dose 0112 (Given - Provid er: Denise Leyva RN) lidocaine (LIDODERM) 5% patch 1 patch 1 patch, topical, Administer over 12 Hours, Daily, First dose on Mon08/02/24 at 0900, Until Discontinued, Apply to back at area of tenderness. morphine injection 4 mg (COMPLETED) 4 mg, intravenous, Once, On Mon07/31/24 at 2200, 1 dose, Assess pain, sedation, and respiratory rate prior to each opioid administration. 221 (Given - Provider: Denise Leyva RN) PRN Medication Order 07/30/2024 07/31/2024 08/01/2024 acetaminophen (TYLENOL) tablet 650 mg (CANCELED) 650 mg, oral, Every 6 hours PRN, pain, Starting on Digna 08/01/24 at 0454, Until Digna 08/01/24 at 1320 0505 (Given - Provid er: Shruthi Felix RN) morphine injection 4 mg (CANCELED) 4 mg, intravenous, Every 2 hour PRN, breakthrough pain, Starting on Mon07/31/24 at 2208, 3 doses, Until Digna 08/01/24 at 1319, Assess pain, sedation, and respiratory rate prior to each opioid administration. 0254 (Given - Provid er: Denise Leyva RN)0828 (Given - Provider: Shruthi Felix RN) oxyCODONE IR (ROXICODONE) tablet 10 mg(Linked Group 1) 10 mg, oral, Every 4 hours PRN, Severe pain or 7-10 (on the numeric pain scale), Starting on Digna 08/01/24 at 1320, Until Digna 08/01/24 at 2351, Assess pain, sedation, and respiratory rate prior to each opioid administration. oxyCODONE IR (ROXICODONE) tablet 5 mg(Linked Group 1) 5 mg, oral, Every 4 hours PRN, Moderate pain or 4-6 (on the numeric pain scale), Starting on Digna 08/01/24 at 1320, Until Digna 08/01/24 at 2351, Assess pain, sedation, and respiratory rate prior to each opioid administration. Linked Groups Order Group 1: oxyCODONE IR (ROXICODONE) tablet 5 mgJump to med 5 mg, oral, Every 4 hours PRN, Moderate pain or 4-6 (on the numeric pain scale), Starting on Digna 08/01/24 at 1320, Until Digna 08/01/24 at 2351, Assess pain, sedation, and respiratory rate prior to each opioid administration. Or oxyCODONE IR (ROXICODONE) tablet 10 mgJump to med 10 mg, oral, Every 4 hours PRN, Severe pain or 7-10 (on the numeric pain scale), Starting on Digna 08/01/24 at 1320, Until Digna 08/01/24 at 2351, Assess pain, sedation, and respiratory rate prior to each opioid administration. documented in this encounter Care Teams Career Services Assistant Relationship Specialty Start Date End Date Farooq Munguia PA [address] [place] [id number] PCP - General 07/31/24 documented as of this encounter
--- OUTSIDE RECORDS SUMMARY | 2024-08-07 08:16 | XMS_ITS | Encounter Summary ---
Author Organization [facility] Address [address] [place] [address] Phone Care Team Providers Care Giver Name Role Phone Ovidio Elkins MD Primary Care Provider [phone] Encounter Details Date Type Department Care Team (Late st Contact Info) Description 02/04/2013 Conversion Encounter [facility] - [address] [place] [address] Social History Tobacco Use Types Packs/Day Years [...] on filedocumented in this encounter Care Teams Giver Relationship Specialty Start Date End Date Ovidio Elkins MD [address] [place] [address] [place] [id number] PCP - General 08/23/17 06/14/23 documented as of this encounter
--- OUTSIDE RECORDS SUMMARY | 2024-08-07 08:16 | XMS_ITS | Referral Summary ---
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 loss of height anteriorly. The posteriorelements are intact. The remainder of the thoracolumbar spine is intact. IMPRESSION: 1. No acute traumatic injury to the chest, abdomen or pelvis. 2. Superior endplate burst fracture of L1. If this radiology report contains a blank impression section, it is anincomplete radiology report. Please contact the interpreting radiologistor applicable radiology division as soon as possible to obtain thecompleted interpretation. Workstation ID: [id number] Up-to-date CT equipment and radiation dose reduction techniques wereemployed. CTDIvol: 1.7 - 50.9 mGy. DLP: 2274 mGy-cm. The followingaccession numbers are related to this dose report [id number]: [id number] Up-to-date CT equipment and radiation dose reduction techniques wereemployed. CTDIvol: 1.7 - 50.9 mGy. DLP: 2274 mGy-cm. The followingaccession numbers are related to this dose report [id number]: [id number] Paige ELKINS IMG CT PROCEDURES Final Resul t * CT RECONSTRUCTION LUMBAR SPINE (07/31/2024 7:12 PM EDT) Anatomical Region Laterality Modality Spine, C-spine Computed Tomogra phy 07/31/2024 7:16 PM EDT Impressions 07/31/2024 7:21 PM EDT 1. No acute traumatic injury to the chest, abdomen or pelvis. 2. Superior endplate burst fracture of L1. If this radiology report contains a blank impression section, it is an incomplete radiology report. ??Please contact the interpreting radiologist or applicable radiology division as soon as possible to obtain the completed interpretation. ? Workstation ID: [id number] Up-to-date CT equipment and radiation dose reduction techniques were employed. CTDIvol: 1.7 - 50.9 mGy. DLP: 2274 mGy-cm. ??The following accession numbers are related to this dose report [id number]: [id number] Up-to-date CT equipment and radiation dose reduction techniques were employed. CTDIvol: 1.7 - 50.9 mGy. DLP: 2274 mGy-cm. ??The following accession numbers are related to this dose report [id number]: [id number] Narrative 07/31/2024 7:21 PM EDT COMPARISON: None ?? FINDINGS: The lungs are clear without focal consolidation, pleural effusion or pneumothorax. Evaluation of the mediastinum demonstrates no traumatic injury, focal mass lesion or pericardial effusion. The aorta and its major mediastinal branch vessels are normal in course and caliber without traumatic injury. The liver demonstrates uniform enhancement without intrahepatic ductal dilatation or focal mass lesion. The gallbladder is physiologically distended without gallstones. The hepatic arterial and portal venous flow is widely patent. The kidneys demonstrate bilateral uniform uptake and excretion of contrast material without hydronephrosis. ??The bladder is normal. ??The pancreas, adrenals and spleen are grossly unremarkable. The bowel demonstrates normal course and configuration without obstruction. The appendix is normal. There is a left lateral superior endplate burst fracture of L1 with mild buckling of the posterior cortex and only minimal encroachment of the canal. There is approximately 10% loss of height anteriorly. The posterior elements are intact. The remainder of the thoracolumbar spine is intact. Resulting Agency Comment [id number] Procedure Note Mychal Lopes MD - 07/31/2024 COMPARISON: None FINDINGS: The lungs are clear without focal consolidation, pleural effusion orpneumothorax. Evaluation of the mediastinum demonstrates no traumaticinjury, focal mass lesion or pericardial effusion. The aorta and its majormediastinal branch vessels are normal in course and caliber withouttraumatic injury. The liver demonstrates uniform enhancement without intrahepatic ductaldilatation or focal mass lesion. The gallbladder is physiologicallydistended without gallstones. The hepatic arterial and portal venous flowis widely patent. The kidneys demonstrate bilateral uniform uptake and excretion of contrastmaterial without hydronephrosis. The bladder is normal. The pancreas,adrenals and spleen are grossly unremarkable. The bowel demonstratesnormal course and configuration without obstruction. The appendix isnormal. There is a left lateral superior endplate burst fracture of L1 with mildbuckling of the posterior cortex and only minimal encroachment of thecanal. There is approximately 10% loss of height anteriorly. The posteriorelements are intact. The remainder of the thoracolumbar spine is intact. IMPRESSION: 1. No acute traumatic injury to the chest, abdomen or pelvis. 2. Superior endplate burst fracture of L1. If this radiology report contains a blank impression section, it is anincomplete radiology report. Please contact the interpreting radiologistor applicable radiology division as soon as possible to obtain thecompleted interpretation. Workstation ID: [id number] Up-to-date CT equipment and radiation dose reduction techniques wereemployed. CTDIvol: 1.7 - 50.9 mGy. DLP: 2274 mGy-cm. The followingaccession numbers are related to this dose report [id number]: [id number] Up-to-date CT equipment and radiation dose reduction techniques wereemployed. CTDIvol: 1.7 - 50.9 mGy. DLP: 2274 mGy-cm. The followingaccession numbers are related to this dose report [id number]: [id number] Paige ELKINS IMG CT PROCEDURES Final Resul t * CT ABDOMEN PELVIS W CONTRAST (07/31/2024 7:12 PM EDT) Anatomical Region Laterality Modality Body Computed Tomogra phy 07/31/2024 7:16 PM EDT Impressions 07/31/2024 7:21 PM EDT 1. No acute traumatic injury to the chest, abdomen or pelvis. 2. Superior endplate burst fracture of L1. If this radiology report contains a blank impression section, it is an incomplete radiology report. ??Please contact the interpreting radiologist or applicable radiology division as soon as possible to obtain the completed interpretation. ? Workstation ID: [id number] Up-to-date CT equipment and radiation dose reduction techniques were employed. CTDIvol: 1.7 - 50.9 mGy. DLP: 2274 mGy-cm. ??The following accession numbers are related to this dose report [id number]: [id number] Up-to-date CT equipment and radiation dose reduction techniques were employed. CTDIvol: 1.7 - 50.9 mGy. DLP: 2274 mGy-cm. ??The following accession numbers are related to this dose report [id number]: [id number] Narrative 07/31/2024 7:21 PM EDT COMPARISON: None ?? FINDINGS: The lungs are clear without focal consolidation, pleural effusion or pneumothorax. Evaluation of the mediastinum demonstrates no traumatic injury, focal mass lesion or pericardial effusion. The aorta and its major mediastinal branch vessels are normal in course and caliber without traumatic injury. The liver demonstrates uniform enhancement without intrahepatic ductal dilatation or focal mass lesion. The gallbladder is physiologically distended without gallstones. The hepatic arterial and portal venous flow is widely patent. The kidneys demonstrate bilateral uniform uptake and excretion of contrast material without hydronephrosis. ??The bladder is normal. ??The pancreas, adrenals and spleen are grossly unremarkable. The bowel demonstrates normal course and configuration without obstruction. The appendix is normal. There is a left lateral superior endplate burst fracture of L1 with mild buckling of the posterior cortex and only minimal encroachment of the canal. There is approximately 10% loss of height anteriorly. The posterior elements are intact. The remainder of the thoracolumbar spine is intact. Resulting Agency Comment [id number] Procedure Note Mychal Lopes MD - 07/31/2024 COMPARISON: None FINDINGS: The lungs are clear without focal consolidation, pleural effusion orpneumothorax. Evaluation of the mediastinum demonstrates no traumaticinjury, focal mass lesion or pericardial effusion. The aorta and its majormediastinal branch vessels are normal in course and caliber withouttraumatic injury. The liver demonstrates uniform enhancement without intrahepatic ductaldilatation or focal mass lesion. The gallbladder is physiologicallydistended without gallstones. The hepatic arterial and portal venous flowis widely patent. The kidneys demonstrate bilateral uniform uptake and excretion of contrastmaterial without hydronephrosis. The bladder is normal. The pancreas,adrenals and spleen are grossly unremarkable. The bowel demonstratesnormal course and configuration without obstruction. The appendix isnormal. There is a left lateral superior endplate burst fracture of L1 with mildbuckling of the posterior cortex and only minimal encroachment of thecanal. There is approximately 10% loss of height anteriorly. The posteriorelements are intact. The remainder of the thoracolumbar spine is intact. IMPRESSION: 1. No acute traumatic injury to the chest, abdomen or pelvis. 2. Superior endplate burst fracture of L1. If this radiology report contains a blank impression section, it is anincomplete radiology report. Please contact the interpreting radiologistor applicable radiology division as soon as possible to obtain thecompleted interpretation. Workstation ID: [id number] Up-to-date CT equipment and radiation dose reduction techniques wereemployed. CTDIvol: 1.7 - 50.9 mGy. DLP: 2274 mGy-cm. The followingaccession numbers are related to this dose report [id number]: [id number] Up-to-date CT equipment and radiation dose reduction techniques wereemployed. CTDIvol: 1.7 - 50.9 mGy. DLP: 2274 mGy-cm. The followingaccession numbers are related to this dose report [id number]: [id number] us Paige ELKINS IMG CT PROCEDURES Final Resul t * CT CHEST W CONTRAST (07/31/2024 7:12 PM EDT) Anatomical Region Laterality Modality Body Computed Tomogra phy 07/31/2024 7:16 PM EDT Impressions 07/31/2024 7:21 PM EDT 1. No acute traumatic injury to the chest, abdomen or pelvis. 2. Superior endplate burst fracture of L1. If this radiology report contains a blank impression section, it is an incomplete radiology report. ??Please contact the interpreting radiologist or applicable radiology division as soon as possible to obtain the completed interpretation. ? Workstation ID: [id number] Up-to-date CT equipment and radiation dose reduction techniques were employed. CTDIvol: 1.7 - 50.9 mGy. DLP: 2274 mGy-cm. ??The following accession numbers are related to this dose report [id number]: [id number] Up-to-date CT equipment and radiation dose reduction techniques were employed. CTDIvol: 1.7 - 50.9 mGy. DLP: 2274 mGy-cm. ??The following accession numbers are related to this dose report [id number]: [id number] [facility] 07/31/2024 7:21 PM EDT COMPARISON: None ?? FINDINGS: The lungs are clear without focal consolidation, pleural effusion or pneumothorax. Evaluation of the mediastinum demonstrates no traumatic injury, focal mass lesion or pericardial effusion. The aorta and its major mediastinal branch vessels are normal in course and caliber without traumatic injury. The liver demonstrates uniform enhancement without intrahepatic ductal dilatation or focal mass lesion. The gallbladder is physiologically distended without gallstones. The hepatic arterial and portal venous flow is widely patent. The kidneys demonstrate bilateral uniform uptake and excretion of contrast material without hydronephrosis. ??The bladder is normal. ??The pancreas, adrenals and spleen are grossly unremarkable. The bowel demonstrates normal course and configuration without obstruction. The appendix is normal. There is a left lateral superior endplate burst fracture of L1 with mild buckling of the posterior cortex and only minimal encroachment of the canal. There is approximately 10% loss of height anteriorly. The posterior elements are intact. The remainder of the thoracolumbar spine is intact. Resulting Agency Comment [id number] Procedure Note Mychal Lopes MD - 07/31/2024 COMPARISON: None FINDINGS: The lungs are clear without focal consolidation, pleural effusion orpneumothorax. Evaluation of the mediastinum demonstrates no traumaticinjury, focal mass lesion or pericardial effusion. The aorta and its majormediastinal branch vessels are normal in course and caliber withouttraumatic injury. The liver demonstrates uniform enhancement without intrahepatic ductaldilatation or focal mass lesion. The gallbladder is physiologicallydistended without gallstones. The hepatic arterial and portal venous flowis widely patent. The kidneys demonstrate bilateral uniform uptake and excretion of contrastmaterial without hydronephrosis. The bladder is normal. The pancreas,adrenals and spleen are grossly unremarkable. The bowel demonstratesnormal course and configuration without obstruction. The appendix isnormal. There is a left lateral superior endplate burst fracture of L1 with mildbuckling of the posterior cortex and only minimal encroachment of thecanal. There is approximately 10% loss of height anteriorly. The posteriorelements are intact. The remainder of the thoracolumbar spine is intact. IMPRESSION: 1. No acute traumatic injury to the chest, abdomen or pelvis. 2. Superior endplate burst fracture of L1. If this radiology report contains a blank impression section, it is anincomplete radiology report. Please contact the interpreting radiologistor applicable radiology division as soon as possible to obtain thecompleted interpretation. Workstation ID: [id number] Up-to-date CT equipment and radiation dose reduction techniques wereemployed. CTDIvol: 1.7 - 50.9 mGy. DLP: 2274 mGy-cm. The followingaccession numbers are related to this dose report [id number]: [id number] Up-to-date CT equipment and radiation dose reduction techniques wereemployed. CTDIvol: 1.7 - 50.9 mGy. DLP: 2274 mGy-cm. The followingaccession numbers are related to this dose report [id number]: [id number] us Paige ELKINS IMG CT PROCEDURES Final Resul t * Type and Screen (07/31/2024 6:29 PM EDT) ABO Blood Type O 08/01/2024 11:26 AM EDT [facility] RH Type Positive 08/01/2024 11:26 AM EDT [facility] Expiration Date/Time 2024-08-03 23:59 08/01/2024 11:26 AM EDT [facility] Antibody Screen Negative 08/01/2024 11:26 AM EDT [facility] Blood Structure of peripheral vein / Unknown Venipuncture / Unknown 07/31/2024 6:29 PM EDT 07/31/2024 6:39 PM EDT [facility] TEST ORDERABLE S Edited Result - Final [facility] [address] [place] [address], [place] [phone] * Lavender Top (07/31/2024 6:18 PM EDT) Extra Tube Hold for add-ons. 07/31/2024 11:05 PM EDT [facility] Comment:Auto resulted. Blood Structure of peripheral vein / Unknown Venipuncture / Unknown 07/31/2024 6:18 PM EDT 07/31/2024 6:18 PM EDT [facility] LAB BLOOD ORDERABLES Final Re sult Performing Organization Address City/[facility]/ZIP Co de Phone Number [facility] [address] [place] [address], [place] [phone] * Light Green Top (07/31/2024 6:18 PM EDT) Extra Tube Hold for add-ons. 07/31/2024 11:05 PM EDT [facility] Comment:Auto resulted. Blood Structure of peripheral vein / Unknown Venipuncture / Unknown 07/31/2024 6:18 PM EDT 07/31/2024 6:18 PM EDT us Pa[facility] LAB BLOOD ORDERABLES Final Re sult [facility] [address] [place] [address], [place] [phone] * Light Blue Top (07/31/2024 6:18 PM EDT) Extra Tube Hold for add-ons. 07/31/2024 11:05 PM EDT [facility] Comment:Auto resulted. Blood Structure of peripheral vein / Unknown Venipuncture / Unknown 07/31/2024 6:18 PM EDT 07/31/2024 6:18 PM EDT [facility] LAB BLOOD ORDERABLES Final Re sult Performing Organization Address [facility]/ZIP Co de Phone Number [facility] [address] [place] [address], * Protime-INR (07/31/2024 6:18 PM EDT) INR 1.2 0.9 - 1.1 07/31/2024 6:35 PM EDT [facility] Comment:The optimal therapeu tic INR range for patients treated with Vitamin K antagonists (VKAS, e.g., Warfarin) is 2.0 to 3.5. Discuss the desired range with your doctor/care team. Blood Structure of peripheral vein / Unknown Venipuncture / Unknown 07/31/2024 6:18 PM EDT 07/31/2024 6:18 PM EDT [facility] BLOOD ORDERABLES Final Re sult Performing Organization Address [facility]/ZIP Co de Phone Number [facility] [address] [place] [address], * (ABNORMAL) CBC (07/31/2024 6:18 PM EDT) WBC 7.0 4.8 - 10.8 10*3/uL 07/31/2024 6:34 PM EDT [facility] RBC 4.78 4.70 - 6.10 10*6/uL 07/31/2024 6:34 PM EDT [facility] Hemoglobin 14.8 13.7 - 16.5 g/dL 07/31/2024 6:34 PM EDT [facility] Hematocrit 41.9 40.5 - 48.5 % 07/31/2024 6:34 PM EDT [facility] MCV 87.7 80.0 - 94.0 fL 07/31/2024 6:34 PM EDT [facility] MCH 31.0 26.0 - 34.0 pg 07/31/2024 6:34 PM EDT [facility] MCHC 35.3 31.0 - 36.0 g/dL 07/31/2024 6:34 PM EDT [facility] RDW 11.8(L) 12.0 - 15.0 % 07/31/2024 6:34 PM EDT [facility] Platelets 221 140 - 440 10*3/uL 07/31/2024 6:34 PM EDT [facility] MPV 11.0 9.4 - 12.4 fL 07/31/2024 6:34 PM EDT [facility] RDW Standard Deviation 38.3 35.1 - 43.9 fL 07/31/2024 6:34 PM EDT [facility] Blood Structure of peripheral vein / Unknown Venipuncture / Unknown 07/31/2024 6:18 PM EDT 07/31/2024 6:18 PM EDT us [facility] LAB BLOOD ORDERABLES Final Re sult [facility] [address] [place] [address], [place] [phone] * MRI Lumbar Spine without Contrast (07/31/2024 [...] nerve roots. 2. Distended bladder. I, Evon Rowcroft, have reviewed the examination and concur with the findings as reported or so edited. Trainee: ??Wilber Hoff If this radiology report contains a blank impression section, it is an incomplete radiology report. ??Please contact the interpreting radiologist or applicable radiology division as soon as possible to obtain the completed interpretation. ? Workstation ID: [id number] Narrative 08/01/2024 4:25 AM EDT EXAMINATION: MRI [...] foraminal narrowing. Distended bladder. Resulting Agency Comment [id number] Procedure Note Evon Ocampo MD - 08/01/2024 [...] or caudaequina nerve roots. 2. Distended bladder. IEvon, have reviewed the examination and concur with thefindings as reported or so edited. Trainee: Wilber Hoff If this radiology report contains a blank impression section, it is anincomplete radiology report. Please contact the interpreting radiologistor applicable radiology division as soon as possible to obtain thecompleted interpretation. Workstation ID: [id number] Lacho Jurado MD IM MRI PROCEDURES Final Res ult from Last 3 Months Insurance [facility] HMO/POS Care Teams Stock Supervisor Relationship Specialty Start Date End Date Farooq Munguia PA [address] [place] [id number] PCP - General 07/31/24
--- OUTSIDE RECORDS SUMMARY | 2024-08-07 08:16 | XMS_ITS | Patient Health Record ---
Author Organization [facility] Address [address] [place] [address] Care Team Providers Care Working Foreman Name Role Phone Ovidio Elkins MD Primary Care Provider Dionna Forte Unavailable [phone] Allergies No Known Allergies Reason For Referral No Information Medications Medication SIG (Take, Route, Frequency, Duration) Notes Start Date End Date Status Methylphenidate HCl 30 MG 1 tablet in th e morning Orally Once a day Active Methylphenidate HCl ER (XR) 20 MG 1 capsule in the morning Orally Once a day Active Gym Note . . . Medical from gym for 1 week 02/06/2019 Not-Taking Cephalexin 250 MG/5ML 10 ml Orally 5 x a day Not-Taking Cephalexin 500 MG 1 tablet Orally Twic e a day for 5 days Active Focalin 5 MG 1 tablet Orally Twic e a day Not-Taking Nightsplint . . . AFO - L1930 for . Not-Taking Excedrin Back & Body PRN Not-Taking Physical Therapy . . . 2-3x/week for 3- 4 weeks 09/20/2016 Not-Taking Social History Tobacco Use: Social History Observation Description Date Details (start date - stop date) Never Smoker NA - NA Tobacco Use/Smoking Question Answer Notes Are you a: nonsmoker Additional Findings: Tobacco Non-User Current no n-smoker Alcohol Screen Question Answer Notes Did you have a drink containing alcohol in the p ast year? No Points 0 Interpretation Negative Tobacco use other than smoking: Question Answer Notes Are you an other tobacco user? 

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
[2024-08-07 08:18] VITALS: BP 110/70; PULSE 76; TEMP 36.3; O2SAT 95; BMI 21.7
== END 2024-08-07 09:13 | disposition home or self-care (01) ==
LOC: HO.HMCH 08:05
PROVIDERS: PCP Physician Assistant; Visit Provider Physician Assistant
DX: S32.001D Stable burst fracture of unspecified lumbar vertebra, subsequent encounter for fracture with routine healing (principal); S86.892D Other injury of other muscle(s) and tendon(s) at lower leg level, left leg, subsequent encounter; F90.0 Attention-deficit hyperactivity disorder, predominantly inattentive type

== ENCOUNTER → 2024-08-07 08:05 | Outpatient (BNVA) | payer BC, SELFPAY | PROVIDERS: PCP Physician Assistant; Visit Provider Physician Assistant | DX: Z13.89 Encounter for screening for other disorder (principal) ==

== ENCOUNTER 2024-09-02 18:24 | Emergency (ER) | payer OTHER, SELFPAY ==
--- NOTE | ~2024-09-02 | CT_ITS ---
CLINICAL HISTORY: pain, injury --- Additional Notes or Special Instructions: Hx of burst L1 fracture CT lumbar spine without contrast Comparison: None Findings: Fbic-bq-xwsyddmk compression deformity present at the L1 vertebral body. There is 4 mm of retropulsion of the superior L1 vertebral body endplate into the central canal. There appears to be mild associated central canal stenosis at this level. The remainder of the lumbar vertebral body heights appear maintained. There is minimal anterior wedging of the T12 vertebral body which may be chronic in etiology given its appearance. No lumbar spondylolisthesis. No significant degenerative endplate changes are visualized. Impression: 1. Isai-gl-cercrkbo L1 vertebral body compression deformity present with 4 mm of retropulsion of the superior L1 vertebral body endplate into the central canal and mild associated central canal stenosis at this level. 2. Minimal anterior wedging of the T12 vertebral body present. This may be chronic in etiology based on its appearance. This document has been electronically signed by: Antonio Catalan MD on 09/02/2024 21:32:07
--- NOTE | ~2024-09-02 | CT_ITS ---
CLINICAL HISTORY: pain, injury CT cervical spine without contrast Comparison: None Findings: The visualized portions of the bilateral lung apices appear clear. There is straightening of the normal cervical lordosis. No cervical spondylolisthesis identified. No acute fractures or dislocations. No significant degenerative endplate changes at the cervical spine. Impression: 1. Straightening of the normal cervical lordosis. This finding is nonspecific and may be positional and/or related to muscle spasm. No acute fracture or dislocation injury identified at the cervical spine. This document has been electronically signed by: Antonio Catalan MD on 09/02/2024 21:31:36
[2024-09-02 18:42] VITALS: BP 118/72; PULSE 71; RESP 18; TEMP 36.4; O2SAT 97; BMI 22.4
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
--- OUTSIDE RECORDS SUMMARY | 2024-09-02 20:34 | XMS_ITS | Encounter Summary ---
Author Organization [facility] Address [address] [place] [address] Phone Care Team Providers Care [employer] Name Role Phone Ovidio Elkins MD Primary Care Provider [phone] Encounter Details Date Type Department Care Team (Late st Contact Info) Description 02/04/2013 Conversion Encounter [facility] - [address] [place] [address] Social History Tobacco Use Types Packs/Day Years [...] on filedocumented in this encounter Care Teams [employer] Relationship Specialty Start Date End Date Ovidio Elkins MD [address] [place] [address] [place] [address] PCP - General 08/23/17 06/14/23 documented as of this encounter
--- OUTSIDE RECORDS SUMMARY | 2024-09-02 20:34 | XMS_ITS | Referral Summary ---
Author Organization [facility] Address [address] [place] [address] Care Team Providers Care Garland Maker Name Role Phone Farooq Munguia Primary Care Provider [phone] Encounters Date Type Department Care Team Description 08/08/2024 2:15 PM EDT Office Visit [facility] [address] [place] [address] Mary Shelton MD Other closed fracture of left patella, initial encounter (Primary Dx) 08/01/2024 Orders Only [facility] [address] [place] [address] Bethel Recinos, JAMIL Closed stable burst fracture of first lumbar vertebra, initial encounter (HCC) (Primary Dx) 07/31/2024 9:20 PM EDT - 08/01/2024 9:50 PM EDT Emergency [facility] Emergency Department [address] [place] [address] Lacho Jurado MD Olivier, Danielle M., MD [...] Disposition: Home or Self Care (01) 07/31/2024 7:55 PM EDT - 07/31/2024 9:19 PM EDT Hospital Encounter [facility] XRay Department [address] [place] [address] Discharge Disposition: Home or Self Care (01) 07/31/2024 6:34 PM EDT - 07/31/2024 7:54 PM EDT Hospital Encounter [facility] CT Scan Department [address] [place] [address] Discharge Disposition: Home or Self Care () 07/31/2024 6:09 PM EDT - 07/31/2024 8:50 PM EDT Emergency [facility] Emergency Department [address] [place] [address] Karla Mosqueda MD Closed burst fracture of lumbar vertebra, initial encounter (HCC) (Primary Dx) Discharge Disposition: Short Term/Acute Care [facility] () from Last 3 Months Allergies No known active allergies Medications methylphenidat e LA (Ritalin LA) 30 mg 24 hr capsule Take 54 mg by mouth every morning. Active gabapentin (NEURONTIN) 100 mg capsule 5 Active dexmethylpheni date (Focalin) 5 mg tablet 1 tablet every 12 (twelve) hours. Active methocarbamoL (ROBAXIN) 500 mg tablet Take 1 tablet (500 mg total) by mouth 4 times a day for 10 days. 40 tablet 5 08/12/19 25 oxyCODONE IR (ROXICODONE) 5 mg tablet Take [...] Male 08/02/2024 9:25 AM EDT Sexual Orientation Straight 08/08/2024 11 :03 AM EDT Last Filed Vital Signs Vital Sign Reading [...] Care Team (Late st Contact Info) Description 09/20/2024 1:00 PM EDT Follow-Up [facility] [address], [place] [id number] Carmina Crow, JAMIL [address] [place], [place] [id number] Procedures * Due to [place] state law, this organization might not be [...] 3 Months Results * Due to [place] state law, this organization might not be [...] obtain the completed interpretation. ? Workstation ID: [id number] Narrative 08/01/2024 1:14 PM EDT COMPARISON: MRI performed earlier same day. ??CT performed 07/31/2024. FINDINGS AND Resulting Agency Comment [id number] Procedure Note Harpal Oakes MD - 08/01/2024 [...] possible to obtain thecompleted interpretation. Workstation ID: [id number] us Nahun Haddad MD IMG XR PROCEDURES Final Resul t * CBC Auto Differential (08/01/2024 7:54 AM EDT) WBC 6.6 3.8 - 10.8 10*3/uL 08/01/2024 8:11 AM EDT [facility] RBC 4.52 4.20 - 5.80 10*6/uL 08/01/2024 8:11 AM EDT [facility] Hemoglobin 14.0 13.2 - 17.1 g/dL 08/01/2024 8:11 AM EDT [facility] Hematocrit 40.3 38.5 - 50.0 % 08/01/2024 8:11 AM EDT [facility] MCV 89.2 80.0 - 100.0 fL 08/01/2024 8:11 AM EDT [facility] MCH 31.0 27.0 - 33.0 pg 08/01/2024 8:11 AM EDT [facility] MCHC 34.7 32.0 - 36.0 g/dL 08/01/2024 8:11 AM EDT [facility] RDW 12.2 11.0 - 15.0 % 08/01/2024 8:11 AM EDT [facility] Platelets 187 140 - 400 10*3/uL 08/01/2024 8:11 AM EDT [facility] MPV 10.6 7.5 - 12.5 fL 08/01/2024 8:11 AM EDT [facility] Neutrophil % 63.7 % 08/01/2024 8:11 AM EDT [facility] Immature Grans % 0.2 0.0 - 0.9 % 08/01/2024 8:11 AM EDT [facility] Lymphocyte % 22.1 % 08/01/2024 8:11 AM EDT [facility] Monocyte % 13.1 % 08/01/2024 8:11 AM EDT [facility] Eosinophil % 0.6 % 08/01/2024 8:11 AM EDT [facility] Basophil % 0.3 % 08/01/2024 8:11 AM EDT [facility] Neutrophil # 4.18 1.50 - 7.80 10*3/uL 08/01/2024 8:11 AM EDT [facility] Immature Grans # <0.03 <=0.03 10*3/uL 08/01/2024 8:11 AM EDT [facility] Lymphocyte # 1.50 0.85 - 3.90 10*3/uL 08/01/2024 8:11 AM EDT [facility] Monocyte # 0.90 0.20 - 0.95 10*3/uL 08/01/2024 8:11 AM EDT [facility] Eosinophil # <0.03 0.02 - 0.50 10*3/uL 08/01/2024 8:11 AM EDT [facility] Basophil # <0.03 0.00 - 0.20 10*3/uL 08/01/2024 8:11 AM EDT [facility] nRBC % 0.0 /100 WBCs 08/01/2024 8:11 AM EDT [facility] nRBC # <0.01 <0.01 10*3/uL 08/01/2024 8:11 AM EDT [facility] Blood Structure of peripheral vein / Unknown Venipuncture / Unknown 08/01/2024 7:54 AM EDT 08/01/2024 8:04 AM EDT us Lila Hartmann MD LAB BLOOD ORDERABLES Letty l Result [email or web address] [address] [place] [address], * (ABNORMAL) BMP - Basic Metabolic Panel (08/01/2024 7:54 AM EDT) Only the most recent of2 resultswithin the time period is included. NA 140 135 - 145 mmol/L 08/01/2024 8:36 AM EDT [facility] K 3.6 3.5 - 5.3 mmol/L 08/01/2024 8:36 AM EDT [facility] Cl 105 98 - 107 mmol/L 08/01/2024 8:36 AM EDT [facility] CO2 24 22 - 32 mmol/L 08/01/2024 8:36 AM EDT [facility] BUN 15 7 - 23 mg/dL 08/01/2024 8:36 AM EDT [facility] Creatinine 0.95 0.60 - 1.30 mg/dL 08/01/2024 8:36 AM EDT [facility] Glucose 117(H) 65 - 99 mg/dL 08/01/2024 8:36 AM EDT [facility] Calcium 8.8 8.6 - 10.5 mg/dL 08/01/2024 8:36 AM EDT [facility] Anion Gap 11 5 - 15 08/01/2024 8:36 AM EDT [facility] eGFR >90 >=60 mL/min/1. 73m2 08/01/2024 8:36 AM EDT [facility] Comment:The estimated glomer ular filtration rate (eGFR) is calculated using a new formula developed by the NKF-ASN task force to eliminate race-based correction factors. The new formula uses serum/plasma creatinine, age, and gender to determine eGFR. A value below 60mls/min might indicate kidney disease and will be flagged. For additional information, see Martinez et al, Am J Kidney Dis. 2021;79(2):268- 288, A Unifying Approach for GFR estimation: Recommendations of the NKF-ASN Task Force on Reassessing the Inclusion of Race in Diagnosing Kidney Disease . Blood Structure of peripheral vein / Unknown Venipuncture / Unknown 08/01/2024 7:54 AM EDT 08/01/2024 8:04 AM EDT us Lila Hartmann MD LAB BLOOD ORDERABLES Letty l Result [facility] [address] [place] [address], [place] * CT Lower Extremity Left WO [...] obtain the completed interpretation. ? Workstation ID: [id number] Narrative 08/01/2024 8:16 AM EDT COMPARISONS: Prior [...] ??Although a grossly intact and difficult to special procedures nurse with this modality, there is some possible thinning of the medial retinaculum. ??At least the lateral fibers of the patellar tendon appear grossly intact. Resulting Agency Comment [id number] Procedure Note Chandra Peres MD - 08/01/2024 [...] present. Although a grossly intact and difficultto special procedures nurse with this modality, there is some possible [...] possible to obtain thecompleted interpretation. Workstation ID: [id number] us Lacho Jurado MD IM CT PROCEDURES Final Resu lt * X-Ray [...] obtain the completed interpretation. ? Workstation ID: [id number] Narrative 08/01/2024 12:54 AM EDT COMPARISON: Frontal and lateral views from earlier in the same day. from earlier in the same day. FINDINGS AND Resulting Agency Comment [id number] Procedure Note Mychal Lopes MD - 08/01/2024 [...] possible to obtain thecompleted interpretation. Workstation ID: [id number] us Lila Hartmann MD IMG XR PROCEDURES [...] obtain the completed interpretation. ? Workstation ID: [id number] Narrative 07/31/2024 11:53 PM EDT COMPARISON: ??There [...] tissues are otherwise unremarkable. Resulting Agency Comment [id number] Procedure Note Evon Ocampo MD - 08/01/2024 [...] possible to obtain thecompleted interpretation. Workstation ID: [id number] us Lacho Jurado MD IMG XR PROCEDURES [...] obtain the completed interpretation. ? Workstation ID: [id number] Narrative 07/31/2024 8:38 PM EDT INDICATION: left [...] retained foreign body. * Resulting Agency Comment [id number] Procedure Note Philipp Casanova MD - 07/31/2024 [...] possible to obtain thecompleted interpretation. Workstation ID: [id number] us Paige ELKINS IMG XR PROCEDURES Final [...] obtain the completed interpretation. ? Workstation ID: [id number] Narrative 07/31/2024 7:15 PM EDT COMPARISON: None. [...] soft tissues are unremarkable. Resulting Agency Comment [id number] Procedure Note Mychal Lopes MD - 07/31/2024 [...] possible to obtain thecompleted interpretation. Workstation ID: [id number] Paige ELKINS IMG CT PROCEDURES Final Resul [...] obtain the completed interpretation. ? Workstation ID: [id number] Narrative 07/31/2024 7:15 PM EDT COMPARISON: None. [...] soft tissues are unremarkable. Resulting Agency Comment [id number] Procedure Note Mychal Lopes MD - 07/31/2024 [...] possible to obtain thecompleted interpretation. Workstation ID: [id number] Paige ELKINS IMG CT PROCEDURES Final Resul [...] obtain the completed interpretation. ? Workstation ID: [id number] Up-to-date CT equipment and radiation dose reduction techniques were employed. CTDIvol: 1.7 - 50.9 mGy. DLP: 2274 mGy-cm. ??The following accession numbers are related to this dose report [id number]: [id number] Up-to-date CT equipment and radiation dose reduction techniques were employed. CTDIvol: 1.7 - 50.9 mGy. DLP: 2274 mGy-cm. ??The following accession numbers are related to this dose report [id number]: [id number] [facility] 07/31/2024 7:21 PM EDT COMPARISON: None ?? [...] thoracolumbar spine is intact. Resulting Agency Comment [id number] Procedure Note Mychal Lopes MD - 07/31/2024 [...] possible to obtain thecompleted interpretation. Workstation ID: [id number] Up-to-date CT equipment and radiation dose reduction techniques wereemployed. CTDIvol: 1.7 - 50.9 mGy. DLP: 2274 mGy-cm. The followingaccession numbers are related to this dose report [id number]: [id number] Up-to-date CT equipment and radiation dose reduction techniques wereemployed. CTDIvol: 1.7 - 50.9 mGy. DLP: 2274 mGy-cm. The followingaccession numbers are related to this dose report [id number]: [id number] Paige ELKINS IMG CT PROCEDURES Final Resul [...] obtain the completed interpretation. ? Workstation ID: [id number] Up-to-date CT equipment and radiation dose reduction techniques were employed. CTDIvol: 1.7 - 50.9 mGy. DLP: 2274 mGy-cm. ??The following accession numbers are related to this dose report [id number]: [id number] Up-to-date CT equipment and radiation dose reduction techniques were employed. CTDIvol: 1.7 - 50.9 mGy. DLP: 2274 mGy-cm. ??The following accession numbers are related to this dose report [id number]: [id number] [facility] 07/31/2024 7:21 PM EDT COMPARISON: None ?? [...] thoracolumbar spine is intact. Resulting Agency Comment [id number] Procedure Note Mychal Lopes MD - 07/31/2024 [...] possible to obtain thecompleted interpretation. Workstation ID: [id number] Up-to-date CT equipment and radiation dose reduction techniques wereemployed. CTDIvol: 1.7 - 50.9 mGy. DLP: 2274 mGy-cm. The followingaccession numbers are related to this dose report [id number]: [id number] Up-to-date CT equipment and radiation dose reduction techniques wereemployed. CTDIvol: 1.7 - 50.9 mGy. DLP: 2274 mGy-cm. The followingaccession numbers are related to this dose report [id number]: [id number] Paige ELKINS IMG CT PROCEDURES Final Resul [...] obtain the completed interpretation. ? Workstation ID: [id number] Up-to-date CT equipment and radiation dose reduction techniques were employed. CTDIvol: 1.7 - 50.9 mGy. DLP: 2274 mGy-cm. ??The following accession numbers are related to this dose report [id number]: [id number] Up-to-date CT equipment and radiation dose reduction techniques were employed. CTDIvol: 1.7 - 50.9 mGy. DLP: 2274 mGy-cm. ??The following accession numbers are related to this dose report [id number]: [id number] Narrative 07/31/2024 7:21 PM EDT COMPARISON: None [...] thoracolumbar spine is intact. Resulting Agency Comment [id number] Procedure Note Mychal Lopes MD - 07/31/2024 [...] possible to obtain thecompleted interpretation. Workstation ID: [id number] Up-to-date CT equipment and radiation dose reduction techniques wereemployed. CTDIvol: 1.7 - 50.9 mGy. DLP: 2274 mGy-cm. The followingaccession numbers are related to this dose report [id number]: [id number] Up-to-date CT equipment and radiation dose reduction techniques wereemployed. CTDIvol: 1.7 - 50.9 mGy. DLP: 2274 mGy-cm. The followingaccession numbers are related to this dose report [id number]: [id number] Paige ELKINS IM CT PROCEDURES Final Resul [...] obtain the completed interpretation. ? Workstation ID: [id number] Up-to-date CT equipment and radiation dose reduction techniques were employed. CTDIvol: 1.7 - 50.9 mGy. DLP: 2274 mGy-cm. ??The following accession numbers are related to this dose report [id number]: [id number] Up-to-date CT equipment and radiation dose reduction techniques were employed. CTDIvol: 1.7 - 50.9 mGy. DLP: 2274 mGy-cm. ??The following accession numbers are related to this dose report [id number]: [id number] Narrative 07/31/2024 7:21 PM EDT COMPARISON: None [...] thoracolumbar spine is intact. Resulting Agency Comment [id number] Procedure Note Mychal Lopes MD - 07/31/2024 [...] possible to obtain thecompleted interpretation. Workstation ID: [id number] Up-to-date CT equipment and radiation dose reduction techniques wereemployed. CTDIvol: 1.7 - 50.9 mGy. DLP: 2274 mGy-cm. The followingaccession numbers are related to this dose report [id number]: [id number] Up-to-date CT equipment and radiation dose reduction techniques wereemployed. CTDIvol: 1.7 - 50.9 mGy. DLP: 2274 mGy-cm. The followingaccession numbers are related to this dose report [id number]: [id number] Paige ELKINS IMG CT PROCEDURES Final Resul t * Type and Screen (07/31/2024 6:29 PM EDT) ABO Blood Type O 08/01/2024 11:26 AM EDT [facility] RH Type Positive 08/01/2024 11:26 AM EDT [facility] Expiration Date/Time 2024-08-03 23:59 08/01/2024 11:26 AM EDT [facility] Antibody Screen Negative 08/01/2024 11:26 AM EDT [facility] Blood Structure of peripheral vein / Unknown Venipuncture / Unknown 07/31/2024 6:29 PM EDT 07/31/2024 6:39 PM EDT [facility] TEST ORDERABLE S Edited Result - Final Performing Organization Address [facility]/ZIP Co de Phone Number [facility] [address] [place] [address], [place] [phone] * Lavender Top (07/31/2024 6:18 PM EDT) Extra Tube Hold for add-ons. 07/31/2024 11:05 PM EDT [facility] Comment:Auto resulted. Blood Structure of peripheral vein / Unknown Venipuncture / Unknown 07/31/2024 6:18 PM EDT 07/31/2024 6:18 PM EDT [facility] BLOOD ORDERABLES Final Re sult Performing Organization Address [facility] Co de Phone Number [facility] [address] [place] [address], [place] [phone] * Light Green Top (07/31/2024 6:18 PM EDT) Extra Tube Hold for add-ons. 07/31/2024 11:05 PM EDT [facility] Comment:Auto resulted. Blood Structure of peripheral vein / Unknown Venipuncture / Unknown 07/31/2024 6:18 PM EDT 07/31/2024 6:18 PM EDT us Paige [facility] LAB BLOOD ORDERABLES Final Re sult Performing Organization Address City/[facility]/ZIP Co de Phone Number [facility] [address] [place] [address], [place] [phone] * Light Blue Top (07/31/2024 6:18 PM EDT) Extra Tube Hold for add-ons. 07/31/2024 11:05 PM EDT [facility] Comment:Auto resulted. Blood Structure of peripheral vein / Unknown Venipuncture / Unknown 07/31/2024 6:18 PM EDT 07/31/2024 6:18 PM EDT [facility] LAB BLOOD ORDERABLES Final Re sult Performing Organization Address [facility] de Phone Number [facility] [address] [place] [address], [place] [phone] * Protime-INR (07/31/2024 6:18 PM EDT) INR 1.2 0.9 - 1.1 07/31/2024 6:35 PM EDT [facility] Comment:The optimal therapeu tic INR range for patients treated with Vitamin K antagonists (VKAS, e.g., Warfarin) is 2.0 to 3.5. Discuss the desired range with your doctor/care team. Blood Structure of peripheral vein / Unknown Venipuncture / Unknown 07/31/2024 6:18 PM EDT 07/31/2024 6:18 PM EDT us Paige ELKINS LAB BLOOD ORDERABLES Final Re sult Performing Organization Address [facility] Co de Phone Number [facility] [address] [place] [address], [place] [phone] * (ABNORMAL) CBC (07/31/2024 6:18 PM EDT) WBC 7.0 4.8 - 10.8 10*3/uL 07/31/2024 6:34 PM EDT [facility] RBC 4.78 4.70 - 6.10 10*6/uL 07/31/2024 6:34 PM EDT [facility] Hemoglobin 14.8 13.7 - 16.5 g/dL 07/31/2024 6:34 PM EDT [facility] Hematocrit 41.9 40.5 - 48.5 % 07/31/2024 6:34 PM EDT [facility] MCV 87.7 80.0 - 94.0 fL 07/31/2024 6:34 PM EDT [facility] MCH 31.0 26.0 - 34.0 pg 07/31/2024 6:34 PM EDT [facility] MCHC 35.3 31.0 - 36.0 g/dL 07/31/2024 6:34 PM EDT [facility] RDW 11.8(L) 12.0 - 15.0 % 07/31/2024 6:34 PM EDT [facility] Platelets 221 140 - 440 10*3/uL 07/31/2024 6:34 PM EDT [facility] MPV 11.0 9.4 - 12.4 fL 07/31/2024 6:34 PM EDT [facility] RDW Standard Deviation 38.3 35.1 - 43.9 fL 07/31/2024 6:34 PM EDT [facility] Blood Structure of peripheral vein / Unknown Venipuncture / Unknown 07/31/2024 6:18 PM EDT 07/31/2024 6:18 PM EDT us Paige ELKINS LAB BLOOD ORDERABLES Final Re sult [facility] [address] [place] [address], * MRI Lumbar Spine without Contrast (07/31/2024 [...] obtain the completed interpretation. ? Workstation ID: [id number] Narrative 08/01/2024 4:25 AM EDT EXAMINATION: MRI [...] foraminal narrowing. Distended bladder. Resulting Agency Comment [id number] Procedure Note Evon Ocampo MD - 08/01/2024 [...] possible to obtain thecompleted interpretation. Workstation ID: [id number] Lacho Jurado MD IM MRI PROCEDURES Final Res ult from Last 3 Months Insurance [facility] HMO/POS Care Teams Garland Maker Relationship Specialty Start Date End Date Farooq Munguia PA [address] [place] [address] PCP - General 07/31/24
--- OUTSIDE RECORDS SUMMARY | 2024-09-02 20:34 | XMS_ITS | Patient Health Record ---
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
--- OUTSIDE RECORDS SUMMARY | 2024-09-02 20:34 | XMS_ITS | Clinical Summary ---
Author Organization [facility] Address [address] [place] [address] Care Team Providers Care Slip Mixer Name Role Phone Farooq Munguia Primary Care Provider [phone] Allergies No known active allergies Medications methylphenidat [...] Description 08/08/2024 2:15 PM EDT Office Visit [facility] [address] [place] [id number] Mary Shelton MD Other closed fracture of left patella, initial encounter (Primary Dx) 08/01/2024 Orders Only [facility] [address] [place] [id number] Bethel Recinos, JAMIL Closed stable burst fracture of first lumbar vertebra, initial encounter (HCC) (Primary Dx) 07/31/2024 9:20 PM EDT - 08/01/2024 9:50 PM EDT Emergency [facility] Emergency Department [address] [place] [id number] Lacho Jurado MD Olivier, Danielle M., MD [...] - 07/31/2024 9:19 PM EDT Hospital Encounter [facility] XRay Department [address] [place] [address] Discharge Disposition: Home or Self Care () 07/31/2024 6:34 PM EDT - 07/31/2024 7:54 PM EDT Hospital Encounter [facility] CT Scan Department [address] [place] [address] Discharge Disposition: Home or Self Care () 07/31/2024 6:09 PM EDT - 07/31/2024 8:50 PM EDT Emergency [facility] Emergency Department [address] [place] [address] Karla Mosqueda MD Closed burst fracture of lumbar vertebra, initial encounter ([facility]) (Primary Dx) Discharge Disposition: Short Term/Acute Care [facility] (02) from Last 3 Months Social History Tobacco [...] Info) Description 09/20/2024 1:00 PM EDT Follow-Up [facility] [address] [place] [address] Carmina Crow NP [address] [place] [address] Health Maintenance Due Date Last Done Comments HIV Screening 2002 Hepatitis C Screening 2002 1 Week WCC 2002 1 Month WCC 2002 2 Month WCC 2002 4 Month WCC 01/30/2003 6 Month WCC 03/31/2003 9 Month WCC 06/29/2003 12 Month WCC 10/09/2003 15 Month WCC 12/26/2003 18 Month WCC 03/25/2004 24 Month WCC 09/21/2004 30 Month WCC 01/25/2005 3 to 23 Year WCC 2005 Well Child Check 2005 HPV Vaccines [...] Completed 05/27/2019, 014 Procedures * Due to [place] state law, this organization might not be [...] Last 3 Months Results * Due to [place] state law, this organization might not be [...] obtain the completed interpretation. ? Workstation ID: [id number] Narrative 08/01/2024 1:14 PM EDT COMPARISON: MRI performed earlier same day. ??CT performed 07/31/2024. FINDINGS AND Resulting Agency Comment [id number] Procedure Note Harpal Oakes MD - 08/01/2024 [...] possible to obtain thecompleted interpretation. Workstation ID: [id number] us Nahun Haddad MD IMG XR PROCEDURES Final Resul t * CBC Auto Differential (08/01/2024 7:54 AM EDT) WBC 6.6 3.8 - 10.8 10*3/uL 08/01/2024 8:11 AM EDT [facility] RBC 4.52 4.20 - 5.80 10*6/uL 08/01/2024 8:11 AM EDT [facility] Hemoglobin 14.0 13.2 - 17.1 g/dL 08/01/2024 8:11 AM EDT [facility] Hematocrit 40.3 38.5 - 50.0 % 08/01/2024 8:11 AM EDT [facility] MCV 89.2 80.0 - 100.0 fL 08/01/2024 8:11 AM EDT [facility] MCH 31.0 27.0 - 33.0 pg 08/01/2024 8:11 AM EDT [facility] MCHC 34.7 32.0 - 36.0 g/dL 08/01/2024 8:11 AM EDT [facility] RDW 12.2 11.0 - 15.0 % 08/01/2024 8:11 AM EDT [facility] Platelets 187 140 - 400 10*3/uL 08/01/2024 8:11 AM EDT [facility] MPV 10.6 7.5 - 12.5 fL 08/01/2024 8:11 AM EDT [facility] Neutrophil % 63.7 % 08/01/2024 8:11 AM EDT [facility] Immature Grans % 0.2 0.0 - 0.9 % 08/01/2024 8:11 AM EDT [facility] Lymphocyte % 22.1 % 08/01/2024 8:11 AM EDT [facility] Monocyte % 13.1 % 08/01/2024 8:11 AM EDT [facility] Eosinophil % 0.6 % 08/01/2024 8:11 AM EDT [facility] Basophil % 0.3 % 08/01/2024 8:11 AM EDT [facility] Neutrophil # 4.18 1.50 - 7.80 10*3/uL 08/01/2024 8:11 AM EDT [facility] Immature Grans # <0.03 <=0.03 10*3/uL 08/01/2024 8:11 AM EDT [facility] Lymphocyte # 1.50 0.85 - 3.90 10*3/uL 08/01/2024 8:11 AM EDT [facility] Monocyte # 0.90 0.20 - 0.95 10*3/uL 08/01/2024 8:11 AM EDT [facility] Eosinophil # <0.03 0.02 - 0.50 10*3/uL 08/01/2024 8:11 AM EDT [facility] Basophil # <0.03 0.00 - 0.20 10*3/uL 08/01/2024 8:11 AM EDT [facility] nRBC % 0.0 /100 WBCs 08/01/2024 8:11 AM EDT [facility] nRBC # <0.01 <0.01 10*3/uL 08/01/2024 8:11 AM EDT [facility] Blood Structure of peripheral vein / Unknown Venipuncture / Unknown 08/01/2024 7:54 AM EDT 08/01/2024 8:04 AM EDT us Lila Hartmann MD LAB BLOOD ORDERABLES Letty l Result [facility] [address] [place] [address], * (ABNORMAL) BMP - Basic Metabolic Panel (08/01/2024 7:54 AM EDT) Only the most recent of2 resultswithin the time period is included. NA 140 135 - 145 mmol/L 08/01/2024 8:36 AM EDT [facility] K 3.6 3.5 - 5.3 mmol/L 08/01/2024 8:36 AM EDT [facility] Cl 105 98 - 107 mmol/L 08/01/2024 8:36 AM EDT [facility] CO2 24 22 - 32 mmol/L 08/01/2024 8:36 AM EDT [facility] BUN 15 7 - 23 mg/dL 08/01/2024 8:36 AM EDT [facility] Creatinine 0.95 0.60 - 1.30 mg/dL 08/01/2024 8:36 AM EDT [facility] Glucose 117(H) 65 - 99 mg/dL 08/01/2024 8:36 AM EDT [facility] Calcium 8.8 8.6 - 10.5 mg/dL 08/01/2024 8:36 AM EDT [facility] Anion Gap 11 5 - 15 08/01/2024 8:36 AM EDT [facility] eGFR >90 >=60 mL/min/1. 73m2 08/01/2024 8:36 AM EDT [facility] Comment:The estimated glomer ular filtration rate (eGFR) is calculated using a new formula developed by the [employer]F-ASN task force to eliminate race-based correction factors. The new formula uses serum/plasma creatinine, age, and gender to determine eGFR. A value below 60mls/min might indicate kidney disease and will be flagged. For additional information, see Mratinez et al, Am J Kidney Dis. 2021;79(2):268- [...] Result [facility] [address] [place] [address], [place] * CT Lower Extremity Left WO [...] obtain the completed interpretation. ? Workstation ID: [id number] Narrative 08/01/2024 8:16 AM EDT COMPARISONS: Prior [...] ??Although a grossly intact and difficult to pulley maintainer with this modality, there is some possible thinning of the medial retinaculum. ??At least the lateral fibers of the patellar tendon appear grossly intact. Resulting Agency Comment [id number] Procedure Note Chandra Peres MD - 08/01/2024 [...] present. Although a grossly intact and difficultto pulley maintainer with this modality, there is some possible [...] possible to obtain thecompleted interpretation. Workstation ID: [id number] us Lacho Jurado MD IM CT PROCEDURES [...] obtain the completed interpretation. ? Workstation ID: [id number] Narrative 08/01/2024 12:54 AM EDT COMPARISON: Frontal and lateral views from earlier in the same day. from earlier in the same day. FINDINGS AND Resulting Agency Comment [id number] Procedure Note Mychal Lopes MD - 08/01/2024 [...] possible to obtain thecompleted interpretation. Workstation ID: [id number] us Lila Hartmann MD IMG XR PROCEDURES [...] obtain the completed interpretation. ? Workstation ID: [id number] Narrative 07/31/2024 11:53 PM EDT COMPARISON: ??There [...] tissues are otherwise unremarkable. Resulting Agency Comment [id number] Procedure Note Evon Ocampo MD - 08/01/2024 [...] possible to obtain thecompleted interpretation. Workstation ID: [id number] us Lacho Jurado MD IMG XR PROCEDURES [...] obtain the completed interpretation. ? Workstation ID: [id number] Narrative 07/31/2024 8:38 PM EDT INDICATION: left [...] retained foreign body. * Resulting Agency Comment [id number] Procedure Note Philipp Casanova MD - 07/31/2024 [...] possible to obtain thecompleted interpretation. Workstation ID: [id number] us Paige ELKINS IMG XR PROCEDURES Final [...] obtain the completed interpretation. ? Workstation ID: [id number] Narrative 07/31/2024 7:15 PM EDT COMPARISON: None. [...] soft tissues are unremarkable. Resulting Agency Comment [id number] Procedure Note Mychal Lopes MD - 07/31/2024 [...] possible to obtain thecompleted interpretation. Workstation ID: [id number] Paige ELKINS IMG CT PROCEDURES Final Resul [...] obtain the completed interpretation. ? Workstation ID: [id number] Narrative 07/31/2024 7:15 PM EDT COMPARISON: None. [...] soft tissues are unremarkable. Resulting Agency Comment [id number] Procedure Note Mychal Lopes MD - 07/31/2024 [...] possible to obtain thecompleted interpretation. Workstation ID: [id number] Paige ELKINS IM CT PROCEDURES Final Resul [...] obtain the completed interpretation. ? Workstation ID: [id number] Up-to-date CT equipment and radiation dose reduction techniques were employed. CTDIvol: 1.7 - 50.9 mGy. DLP: 2274 mGy-cm. ??The following accession numbers are related to this dose report [id number]: [id number] Up-to-date CT equipment and radiation dose reduction techniques were employed. CTDIvol: 1.7 - 50.9 mGy. DLP: 2274 mGy-cm. ??The following accession numbers are related to this dose report [id number]: [id number] Narrative 07/31/2024 7:21 PM EDT COMPARISON: None [...] thoracolumbar spine is intact. Resulting Agency Comment [id number] Procedure Note Mychal Lopes MD - 07/31/2024 [...] possible to obtain thecompleted interpretation. Workstation ID: [id number] Up-to-date CT equipment and radiation dose reduction techniques wereemployed. CTDIvol: 1.7 - 50.9 mGy. DLP: 2274 mGy-cm. The followingaccession numbers are related to this dose report [id number]: [id number] Up-to-date CT equipment and radiation dose reduction techniques wereemployed. CTDIvol: 1.7 - 50.9 mGy. DLP: 2274 mGy-cm. The followingaccession numbers are related to this dose report [id number]: [id number] Paige ELKINS IMG CT PROCEDURES Final Resul [...] obtain the completed interpretation. ? Workstation ID: [id number] Up-to-date CT equipment and radiation dose reduction techniques were employed. CTDIvol: 1.7 - 50.9 mGy. DLP: 2274 mGy-cm. ??The following accession numbers are related to this dose report [id number]: [id number] Up-to-date CT equipment and radiation dose reduction techniques were employed. CTDIvol: 1.7 - 50.9 mGy. DLP: 2274 mGy-cm. ??The following accession numbers are related to this dose report [id number]: [id number] Narrative 07/31/2024 7:21 PM EDT COMPARISON: None [...] thoracolumbar spine is intact. Resulting Agency Comment [id number] Procedure Note Mychal Lopes MD - 07/31/2024 [...] possible to obtain thecompleted interpretation. Workstation ID: [id number] Up-to-date CT equipment and radiation dose reduction techniques wereemployed. CTDIvol: 1.7 - 50.9 mGy. DLP: 2274 mGy-cm. The followingaccession numbers are related to this dose report [id number]: [id number] Up-to-date CT equipment and radiation dose reduction techniques wereemployed. CTDIvol: 1.7 - 50.9 mGy. DLP: 2274 mGy-cm. The followingaccession numbers are related to this dose report [id number]: [id number] Paige ELKINS IMG CT PROCEDURES Final Resul [...] obtain the completed interpretation. ? Workstation ID: [id number] Up-to-date CT equipment and radiation dose reduction techniques were employed. CTDIvol: 1.7 - 50.9 mGy. DLP: 2274 mGy-cm. ??The following accession numbers are related to this dose report [id number]: [id number] Up-to-date CT equipment and radiation dose reduction techniques were employed. CTDIvol: 1.7 - 50.9 mGy. DLP: 2274 mGy-cm. ??The following accession numbers are related to this dose report [id number]: [id number] Narrative 07/31/2024 7:21 PM EDT COMPARISON: None [...] thoracolumbar spine is intact. Resulting Agency Comment [id number] Procedure Note Mychal Lopes MD - 07/31/2024 [...] possible to obtain thecompleted interpretation. Workstation ID: [id number] Up-to-date CT equipment and radiation dose reduction techniques wereemployed. CTDIvol: 1.7 - 50.9 mGy. DLP: 2274 mGy-cm. The followingaccession numbers are related to this dose report [id number]: [id number] Up-to-date CT equipment and radiation dose reduction techniques wereemployed. CTDIvol: 1.7 - 50.9 mGy. DLP: 2274 mGy-cm. The followingaccession numbers are related to this dose report [id number]: [id number] Paige ELKINS IMG CT PROCEDURES Final Resul [...] obtain the completed interpretation. ? Workstation ID: [id number] Up-to-date CT equipment and radiation dose reduction techniques were employed. CTDIvol: 1.7 - 50.9 mGy. DLP: 2274 mGy-cm. ??The following accession numbers are related to this dose report [id number]: [id number] Up-to-date CT equipment and radiation dose reduction techniques were employed. CTDIvol: 1.7 - 50.9 mGy. DLP: 2274 mGy-cm. ??The following accession numbers are related to this dose report [id number]: [id number] Narrative 07/31/2024 7:21 PM EDT COMPARISON: None [...] thoracolumbar spine is intact. Resulting Agency Comment [id number] Procedure Note Mychal Lopes MD - 07/31/2024 [...] possible to obtain thecompleted interpretation. Workstation ID: [id number] Up-to-date CT equipment and radiation dose reduction techniques wereemployed. CTDIvol: 1.7 - 50.9 mGy. DLP: 2274 mGy-cm. The followingaccession numbers are related to this dose report [id number]: [id number] Up-to-date CT equipment and radiation dose reduction techniques wereemployed. CTDIvol: 1.7 - 50.9 mGy. DLP: 2274 mGy-cm. The followingaccession numbers are related to this dose report [id number]: [id number] us Paige ELKINS IMG CT PROCEDURES Final Resul t * Type and Screen (07/31/2024 6:29 PM EDT) ABO Blood Type O 08/01/2024 11:26 AM EDT [facility] RH Type Positive 08/01/2024 11:26 AM EDT [facility] Expiration Date/Time 2024-08-03 23:59 08/01/2024 11:26 AM EDT [facility] Antibody Screen Negative 08/01/2024 11:26 AM EDT [facility] Blood Structure of peripheral vein / Unknown Venipuncture / Unknown 07/31/2024 6:29 PM EDT 07/31/2024 6:39 PM EDT us Paige ELKINS [facility] BLOOD BANK TEST ORDERABLE S Edited Result - Final [facility] [address] [place] [address], [place] [phone] * Michell Hedrick (07/31/2024 6:18 PM EDT) Extra Tube Hold for add-ons. 07/31/2024 11:05 PM EDT [facility] Comment:Auto resulted. Blood Structure of peripheral vein / Unknown Venipuncture / Unknown 07/31/2024 6:18 PM EDT 07/31/2024 6:18 PM EDT us Paige ELKINS LAB BLOOD ORDERABLES Final Re sult Performing Organization Address [facility]/ZIP Co de Phone Number [facility] [address] [place] [address], [place] [phone] * Light Green Top (07/31/2024 6:18 PM EDT) Extra Tube Hold for add-ons. 07/31/2024 11:05 PM EDT [facility] Comment:Auto resulted. Blood Structure of peripheral vein / Unknown Venipuncture / Unknown 07/31/2024 6:18 PM EDT 07/31/2024 6:18 PM EDT us Paige ELKINS LAB BLOOD ORDERABLES Final Re sult Performing Organization Address [facility]/ZIP Co de Phone Number [facility] [address] [place] [address], [place] [phone] * Light Blue Top (07/31/2024 6:18 PM EDT) Extra Tube Hold for add-ons. 07/31/2024 11:05 PM EDT [facility] Comment:Auto resulted. Blood Structure of peripheral vein / Unknown Venipuncture / Unknown 07/31/2024 6:18 PM EDT 07/31/2024 6:18 PM EDT us Paige ELKINS LAB BLOOD ORDERABLES Final Re sult Performing Organization Address City/[facility] de Phone Number [facility] [address] [place] [address], * Protime-INR (07/31/2024 6:18 PM EDT) Pathologist [facility] INR 1.2 0.9 - 1.1 07/31/2024 6:35 PM EDT [facility] Comment:The optimal therapeu tic INR range for patients treated with Vitamin K antagonists (VKAS, e.g., Warfarin) is 2.0 to 3.5. Discuss the desired range with your doctor/care team. Blood Structure of peripheral vein / Unknown Venipuncture / Unknown 07/31/2024 6:18 PM EDT 07/31/2024 6:18 PM EDT Pa[facility] LAB BLOOD ORDERABLES Final Re sult Performing Organization Address [facility] Co de Phone Number [facility] [address] [place] [address], [place] [phone] * (ABNORMAL) CBC (07/31/2024 6:18 PM EDT) [facility] WBC 7.0 4.8 - 10.8 10*3/uL 07/31/2024 6:34 PM EDT [facility] RBC 4.78 4.70 - 6.10 10*6/uL 07/31/2024 6:34 PM EDT [facility] Hemoglobin 14.8 13.7 - 16.5 g/dL 07/31/2024 6:34 PM EDT [facility] Hematocrit 41.9 40.5 - 48.5 % 07/31/2024 6:34 PM EDT [facility] MCV 87.7 80.0 - 94.0 fL 07/31/2024 6:34 PM EDT [facility] MCH 31.0 26.0 - 34.0 pg 07/31/2024 6:34 PM EDT [facility] MCHC 35.3 31.0 - 36.0 g/dL 07/31/2024 6:34 PM EDT [facility] RDW 11.8(L) 12.0 - 15.0 % 07/31/2024 6:34 PM EDT [facility] Platelets 221 140 - 440 10*3/uL 07/31/2024 6:34 PM EDT [facility] MPV 11.0 9.4 - 12.4 fL 07/31/2024 6:34 PM EDT [facility] RDW Standard Deviation 38.3 35.1 - 43.9 fL 07/31/2024 6:34 PM EDT [facility] Blood Structure of peripheral vein / Unknown Venipuncture / Unknown 07/31/2024 6:18 PM EDT 07/31/2024 6:18 PM EDT us Paige ELKINS LAB BLOOD ORDERABLES Final Re sult [facility] [address] [place] [address], * MRI Lumbar Spine without Contrast (07/31/2024 [...] cauda equina nerve roots. 2. Distended bladder. IEvon, have reviewed the examination and concur with the findings as reported or so edited. Trainee: ??Wilber Hoff If this radiology report contains a blank impression section, it is an incomplete radiology report. ??Please contact the interpreting radiologist or applicable radiology division as soon as possible to obtain the completed interpretation. ? Workstation ID: [id number] Narrative 08/01/2024 4:25 AM EDT EXAMINATION: MRI [...] foraminal narrowing. Distended bladder. Resulting Agency Comment [id number] Procedure Note Evon Ocampo MD - 08/01/2024 [...] possible to obtain thecompleted interpretation. Workstation ID: [id number] Lacho Jurado MD IMG MRI PROCEDURES Final Res ult from Last 3 Months Insurance HMO/POS Care Teams Slip Mixer Relationship Specialty Start Date End Date Faroqo Munguia PA [address] [place] [address] [phone] PCP - General 07/31/24
[2024-09-03 00:48] VITALS: BP 110/75; PULSE 65; RESP 16; TEMP 36.8; O2SAT 97
[2024-09-03 01:01] VITALS: BP 110/75; PULSE 65; RESP 16; TEMP 36.8; O2SAT 97
== END 2024-09-03 01:01 | disposition home or self-care (01) ==
PROVIDERS: Emergency Provider Emergency Medicine; PCP Physician Assistant
DX: S32.019A Unspecified fracture of first lumbar vertebra, initial encounter for closed fracture (principal); M54.2 Cervicalgia; X58.XXXA Exposure to other specified factors, initial encounter; V43.52XA Car driver injured in collision with other type car in traffic accident, initial encounter; Y93.9 Activity, unspecified; Y92.9 Unspecified place or not applicable; Y99.8 Other external cause status
CPT/HCPCS: 72125; 72131; 99283; 99284

== ENCOUNTER → 2024-09-02 18:55 | Outpatient (BNV) | payer BC, SELFPAY | PROVIDERS: Emergency Provider Emergency Medicine; PCP Physician Assistant; Visit Provider Radiology Diagnostic Radiology | DX: M54.2 Cervicalgia (principal); S32.010A Wedge compression fracture of first lumbar vertebra, initial encounter for closed fracture | CPT/HCPCS: 72125; 72131 ==

== ENCOUNTER 2024-11-14 08:02 | Outpatient (AMB) | payer BC, SELFPAY ==
[2024-11-14 08:05] VITALS: BP 122/72; PULSE 72; O2SAT 97; BMI 21.7
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
--- OUTSIDE RECORDS SUMMARY | 2024-11-14 08:09 | XMS_ITS | Clinical Summary ---
Author Organization [facility] Address [address] [place] [address] Care Team Providers Care Newspaper Delivery Counselor Name Role Phone Farooq Munugia Primary Care Provider [phone] Allergies No known active allergies Medications methylphenidate LA (Ritalin LA) 30 mg 24 hr capsule Take 54 mg by mouth every morning. Active gabapentin (NEURONTIN) 100 mg capsule 08/07/2024 Active dexmethylphenida te (Focalin) 5 mg tablet 1 tablet every 12 (twelve) hours. Active Active Problems Problem Noted Date Diagnosed [...] Encounters Date Type Department Care Team Description 11/01/2024 9:00 AM EDT Follow-Up [facility] Neurosurgery [address] [address] Carmina Crow NP Closed stable burst fracture of first lumbar vertebra, initial encounter (HCC) (Primary Dx) 09/26/2024 myChart Message [facility] Neurosurgery [address] [address] Carmina Crow NP Back brace 09/20/2024 1:30 PM EDT Follow-Up [facility] Neurosurgery [address] [address] Carmina Crow NP Closed stable burst fracture of first lumbar vertebra, initial encounter (HCC) (Primary Dx) 09/10/2024 Orders Only [facility] Neurosurgery [address] [address] Annia Baron 09/04/2024 Transcribe Orders [facility] [address] [place] [address] [facility] Retropulsion (Primary Dx); Fracture from Last 3 Months Social History Tobacco [...] Sign Reading Time Taken Comments Blood Pressure 112/72 11/01/2024 9:08 AM EDT Pulse 72 11/01/2024 9:08 AM EDT Temperature 36.7 C (98.1 F) 08/01/2024 9:00 PM EDT Respiratory Rate 18 11/01/2024 9:08 AM EDT Oxygen Saturation 99% 11/01/2024 9:08 AM EDT Inhaled Oxygen Concentration - - Weight 83.5 kg (184 lb) 07/31/2024 6:18 PM EDT Height 193 cm (6' 4 ) 07/31/2024 6:18 PM EDT Body Mass Index 22.4 07/31/2024 6:18 PM EDT Plan of Treatment Upcoming Encounters Date Type Department Care Team (Late st Contact Info) Description 12/06/2024 8:00 AM EDT Follow-Up [facility] [address] [place] [address] Carmina Crow NP [address] [place] [address] Health Maintenance Due Date Last Done Comments HIV Screening 2002 Hepatitis C Screening 2002 HPV Vaccines (2 - Male 3-dos e series) 06/18/2018 05/21/2018 COVID-19 Vaccine ( - 2023-2 5 season) 2023 Alcohol/Substance Use Screening 04/17/2024 Depression Screening and Follow-Up 04/17/2024 Social Drivers of Health Nelly ual Screening 04/17/2024 Influenza Vaccine (#1) 2024 , 02/09/2022, 04/01/2021, Additional history exists DTaP,Tdap,and Td Vaccines (8 - Td or Tdap) 05/08/2034 05/08/2024, 02/18/2014, 10/09/2006, Additional history exists RSV Vaccine (60+ years old a nd patients) (1 - 1-dose 75+ series) 2077 Hepatitis B Vaccines Completed 04/07/2003, 2002, 2002 Pneumococcal Vaccine: Pediat ghislaine (0-5 Years) and At-Risk Patients (6-50 Years) Completed 04/12/2004, 04/07/2003, 02/07/2003, Additional history exists Varicella Vaccines Completed 10/09/2006, 10/13/2003 Meningococcal Vaccine Completed 05/27/2019, 014 Procedures * Due to [place] luma-id law, this organization might not be sharing negative HIV tests. Procedure Name Priority Date/Time Associated Diagnosis Comments XR THORACOLUMBAR SPINE 2 VIEWS Routine 11/01/2024 8:55 AM EDT Closed stable burst fracture of first lumbar vertebra, initial encounter (HCC) XR THORACOLUMBAR SPINE 2 VIEWS Routine 09/20/2024 1:06 PM EDT Closed stable burst fracture of first lumbar vertebra, initial encounter (HCC) AMB EXTERNAL CT C-SPINE, OUTSIDE RESULT Routine 09/02/2024 8:29 AM EDT AMB EXTERNAL CT L-SPINE, OUTSIDE RESULT Routine 09/02/2024 8:27 AM EDT from Last 3 Months Results * Due to [place] luma-id law, this organization might not be sharing negative HIV tests. * X-ray thoracolumbar spine 2 views (11/01/2024 8:55 AM EDT) Only the most recent of2 resultswithin the time period is included. Anatomical Region Laterality Modality Spine, T-spine, L-spine Computed Radiography 11/01/2024 7:20 PM EDT Impressions 11/01/2024 7:21 PM EDT FINDINGS/IMPRESSION: Known fracture of L1 with mild vertebral height loss similar to prior exam. No new vertebral height loss. Remaining vertebral body heights maintained. Sacroiliac joints symmetric. Sacrum partly obscured. Paraspinal soft tissues unremarkable. If this radiology report contains a blank impression section, it is an incomplete radiology report. Please contact the interpreting radiologist or applicable radiology division as soon as possible to obtain the completed interpretation. Workstation ID: [id number] Narrative 11/01/2024 7:21 PM EDT COMPARISON: 09/20/2024 Resulting Agency Comment [id number] Procedure Note Zain Gresham MD - 11/01/2024 COMPARISON: 09/20/2024 IMPRESSION: FINDINGS/IMPRESSION: Known fracture of L1 with mild vertebral height loss similar to priorexam. No new vertebral height loss. Remaining vertebral body heightsmaintained. Sacroiliac joints symmetric. Sacrum partly obscured.Paraspinal soft tissues unremarkable. If this radiology report contains a blank impression section, it is anincomplete radiology report. Please contact the interpreting radiologistor applicable radiology division as soon as possible to obtain thecompleted interpretation. Workstation ID: [id number] Carmina Crow STRATEGIC BUSINESS DEVELOPMENT IMG XR PROCEDURES Final R esult * CT C-Spine, Outside Result (09/02/2024 8:29 AM EDT) Anatomical Region Laterality Modality Other Annia SHELBY EXTERNAL RESULT PROCEDURES Final Result * CT L-Spine, Outside Result (09/02/2024 8:27 AM EDT) Anatomical Region Laterality Modality Other Annia Baorn AMB EXTERNAL RESULT PROCEDURES Final Result from Last [address] [facility] HMO/POS Care Teams Newspaper Delivery Counselor Relationship Specialty Start Date End Date Farooq Munguia PA [address] [place] [id number] PCP - General 07/31/24
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
--- OUTSIDE RECORDS SUMMARY | 2024-11-14 08:09 | XMS_ITS | Clinical Summary ---
Author Organization [facility] Address [address] [place] [address] Phone Care Team Providers Care Cryogenic Transport Driver Name Role Phone Unavailable Primary Care Provider [...] least 8 hours sleep nightly encouraged Recheck [facility] 05/2021 Assessment & Plan (07/13/2020 10:41 [...] nature and regressing a bit. Recheck at [facility] 05/28/2020 Follow up anytime if doubles [...] 70 05/17/2023 9:58 AM EST Temperature 37.1 C (98.8 F) 05/17/2023 9:58 AM EST Respiratory Rate 20 05/17/2023 9:58 AM EST Oxygen Saturation 98% 05/17/2023 9:58 AM EST Inhaled Oxygen Concentration - - Weight 84 kg (185 lb 2 oz) 05/17/2023 9:58 AM ES T Height 195.7 cm (6' 5.05 ) 05/17/2023 9:58 AM ES T Body Mass Index 21.93 05/17/2023 9:58 AM EST Plan of Treatment Health Maintenance Due Date Last Done Comments COVID-19 Vaccine (2023-2 5 season) 2023 DTaP,Tdap,and Td Vaccines (7 - Td or Tdap) 02/19/2024 02/18/2014, 10/09/2006, 10/09/2006, Additional history exists Influenza Vaccines (#1) 2024 05/17/19, 02/09/2022, 04/01/2021, Additional history exists Hepatitis B Vaccines Completed [...] Men B Vaccine Completed 07/15/2021, 07/13/[address] [facility]
== END 2024-11-14 08:29 | disposition home or self-care (01) ==
LOC: HO.HMCH 08:03
PROVIDERS: PCP Physician Assistant; Visit Provider Physician Assistant
DX: Z00.00 Encounter for general adult medical examination without abnormal findings (principal); S32.001D Stable burst fracture of unspecified lumbar vertebra, subsequent encounter for fracture with routine healing; F90.0 Attention-deficit hyperactivity disorder, predominantly inattentive type

== ENCOUNTER → 2024-11-14 08:02 | Outpatient (BNVA) | payer BC, SELFPAY | PROVIDERS: PCP Physician Assistant; Visit Provider Physician Assistant | DX: Z00.00 Encounter for general adult medical examination without abnormal findings (principal); S32.001D Stable burst fracture of unspecified lumbar vertebra, subsequent encounter for fracture with routine healing; V89.2XXD Person injured in unspecified motor-vehicle accident, traffic, subsequent encounter; F90.0 Attention-deficit hyperactivity disorder, predominantly inattentive type; Z79.899 Other long term (current) drug therapy; Z13.31 Encounter for screening for depression; Z13.39 Encounter for screening examination for other mental health and behavioral disorders | CPT/HCPCS: 96127 ==

== ENCOUNTER 2025-01-14 08:34 | Outpatient (AMB) | payer BC, SELFPAY ==
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
[2025-01-14 08:43] VITALS: BP 130/74; PULSE 94; TEMP 36.2; O2SAT 97; BMI 21.4
--- OUTSIDE RECORDS SUMMARY | 2025-01-14 08:54 | XMS_ITS | Clinical Summary ---
Author Organization [facility] Address [address] [place] [address] Phone Care Team Providers Care Child Life Specialist Name Role Phone Unavailable Primary Care Provider [...] hours sleep nightly encouraged Recheck [facility] 05/2021 Assessment & Plan (07/13/2020 10:41 [...] regressing a bit. Recheck at [facility] 05/28/2020 Follow up anytime if doubles [...] Health Maintenance Due Date Last Done Comments DTaP,Tdap,and Td Vaccines (7 - Td or Tdap) 02/19/2024 02/18/2014, 10/09/2006, 10/09/2006, Additional history exists Influenza Vaccines (#1) 2024 05/17/19, 02/09/2022, 04/01/2021, Additional history exists COVID-19 Vaccine ( - 2023-2 5 season) 2024 Hepatitis B Vaccines Completed 04/07/2003, 2002, 2002 [...] Men B Vaccine Completed 07/15/2021, 07/13/[address] [facility]
--- OUTSIDE RECORDS SUMMARY | 2025-01-14 08:54 | XMS_ITS | Clinical Summary ---
Author Organization [facility] Address [address] [place] [address] Care Team Providers Care Instructor Apparel Manufacture Name Role Phone Farooq Munguia Primary Care Provider [phone] Allergies No known active allergies Medications methylphenidate [...] Encounters Date Type Department Care Team Description 12/06/2024 8:00 AM EDT Follow-Up [facility] Neurosurgery [address] [address] Carmina Crow NP Closed stable burst fracture of first lumbar vertebra, initial encounter ([facility]) (Primary Dx) 11/01/2024 9:00 AM EDT Follow-Up [facility] Neurosurgery [address] [address] Carmina Crow NP Closed stable burst fracture of first lumbar vertebra, initial encounter ([facility]) (Primary Dx) from Last 3 Months Social History Tobacco [...] Sign Reading Time Taken Comments Blood Pressure 115/70 12/06/2024 8:14 AM EDT Pulse 75 12/06/2024 8:14 AM EDT Temperature 37 C (98.6 F) 12/06/2024 8:14 AM EDT Respiratory Rate 18 11/01/2024 9:08 AM EDT Oxygen Saturation 95% 12/06/2024 8:14 AM EDT Inhaled Oxygen Concentration - - Weight 83.5 kg (184 lb) 07/31/2024 6:18 PM EDT Height 193 cm (6' 4 ) 07/31/2024 6:18 PM EDT Body Mass Index 22.4 07/31/2024 6:18 PM EDT Plan of Treatment Health Maintenance Due Date Last Done Comments HIV Screening 2002 Hepatitis C Screening 2002 HPV Vaccines (2 - Male 3-dos e series) 06/18/2018 05/21/2018 Alcohol/Substance Use Screening 04/17/2024 Depression Screening and Follow-Up 04/17/2024 Social Drivers of Health Nelly ual Screening 04/17/2024 COVID-19 Vaccine (1 - 2023-2 5 season) 2024 Influenza Vaccine (#1) 2024 , 02/09/2022, 04/01/2021, [...] 014 Procedures * Due to [place] state law, this organization might not be sharing negative HIV tests. Procedure Name Priority Date/Time Associated Diagnosis Comments XR LUMBAR SPINE 2 OR 3 VIEWS Routine 12/06/2024 8:05 AM EDT Closed stable burst fracture of first lumbar vertebra, initial encounter (HCC) XR THORACOLUMBAR SPINE 2 VIEWS Routine 11/01/2024 8:55 AM EDT Closed stable burst fracture of first lumbar vertebra, initial encounter (HCC) from Last 3 Months Results * Due to [place] state law, this organization might not be sharing negative HIV tests. * X-Ray Lumbar Spine 2 or 3 Views (12/06/2024 8:05 AM EDT) Anatomical Region Laterality Modality Spine, L-spine Computed Radiogr aphy 12/06/2024 5:29 PM EDT Impressions 12/06/2024 5:30 PM EDT FINDINGS/IMPRESSION: Mild superior endplate compression fracture of L1 vertebra with height loss similar to prior exam. Remaining vertebral body heights are maintained. No significant disc space narrowing. Sacroiliac joints symmetric. Sacrum partly obscured. Paraspinal soft tissues unremarkable. If this radiology report contains a blank impression section, it is an incomplete radiology report. Please contact the interpreting radiologist or applicable radiology division as soon as possible to obtain the completed interpretation. Workstation ID: [id number] Narrative 12/06/2024 5:30 PM EDT COMPARISON: 11/01/2024 Resulting Agency Comment [id number] Procedure Note Zain Gresham MD - 12/06/2024 COMPARISON: 11/01/2024 IMPRESSION: FINDINGS/IMPRESSION: Mild superior endplate compression fracture of L1 vertebra with heightloss similar to prior exam. Remaining vertebral body heights aremaintained. No significant disc space narrowing. Sacroiliac jointssymmetric. Sacrum partly obscured. Paraspinal soft tissuesunremarkable. If this radiology report contains a blank impression section, it is anincomplete radiology report. Please contact the interpreting radiologistor applicable radiology division as soon as possible to obtain thecompleted interpretation. Workstation ID: [id number] us Carmina Crow PLANNING DIVISION SUPERINTENDENT IMG XR PROCEDURES Final R esult * X-ray thoracolumbar spine 2 views (11/01/2024 8:55 AM EDT) Anatomical Region Laterality Modality Spine, T-spine, [...] to obtain the completed interpretation. Workstation ID: [id number] Narrative 11/01/2024 7:21 PM EDT COMPARISON: 09/20/2024 Resulting Agency Comment [id number] Procedure Note Zain Gresham MD - 11/01/2024 [...] possible to obtain thecompleted interpretation. Workstation ID: [id number] Carmina Crow PLANNING DIVISION SUPERINTENDENT IMG XR PROCEDURES Final R esult from Last 3 Months Insurance HMO/POS Care Teams Instructor Apparel Manufacture Relationship Specialty Start Date End Date Farooq Munguia PA [address] [place] [id number] PCP - General 07/31/24
--- OUTSIDE RECORDS SUMMARY | 2025-01-14 08:55 | XMS_ITS | Encounter Summary ---
Author Organization [facility] Address [address] [place] [address] Phone Care Team Providers Care Cytogeneticist Name Role Phone Ovidio Elkins MD Primary Care Provider [phone] Encounter Details Date Type Department Care Team (Late st Contact Info) Description 02/04/2013 Conversion Encounter [facility] - [address] [place] [address] Social History Tobacco Use Types Packs/Day Years [...] on filedocumented in this encounter Care Teams Cytogeneticist Relationship Specialty Start Date End Date Ovidio Elkins MD [address] [place] [address] [place] [address] PCP - General 08/23/17 06/14/23 documented as of this encounter
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
== END 2025-01-14 08:58 | disposition home or self-care (01) ==
LOC: HO.HMCH 08:34
PROVIDERS: PCP Physician Assistant; Visit Provider Physician Assistant
DX: F90.0 Attention-deficit hyperactivity disorder, predominantly inattentive type (principal); S32.001D Stable burst fracture of unspecified lumbar vertebra, subsequent encounter for fracture with routine healing